=== PATIENT | female | born 1945 | race Two or more races ===

== ENCOUNTER 2017-12-06 17:11 | Inpatient (IN) | payer OTHER ==
[2017-12-06] MEDS ORDERED: ONDANSETRON 4 MG INJ IV (18:00)
[2017-12-06] MEDS ORDERED: LORAZEPAM 0.5 MG TAB PO (18:00)
[2017-12-06] MEDS ORDERED: morphine 2 MG INJ IV (18:00)
[2017-12-06] MEDS ORDERED: NACL 0.9% 3 ML SYG IV (18:00)
[2017-12-06] MEDS ORDERED: DEXTROSE 50% 50 ML SYRINGE IV ×2 (18:30)
[2017-12-06] MEDS ORDERED: GLUCOSE GEL 15 GRAM TUBE BUCCAL (18:30)
[2017-12-06] MEDS ORDERED: GLUCOSE GEL 15 GRAM TUBE PO ×2 (18:30)
[2017-12-06] MEDS ORDERED: GLUCAGON 1 MG INJ IM (18:30)
[2017-12-06] MEDS: SOD CHLORIDE 0.9% 1,000 ML IV (18:35)
[2017-12-06 19:18] LABS: ADD MAN DIFF? NO
[2017-12-06 19:20] LABS: ABNORMAL IP MESSAGE 1; NUCLEATED RED BLOOD CELLS% 0.7 /100WBC (0.0-0.0)
[2017-12-06 19:26] LABS: HEMATOCRIT 22.8 % (37.0-47.0); MEAN CORPUSCULAR HEMOGLOBIN 22.6 pg (29.0-33.0); MEAN CORPUSCULAR HGB CONC 29.4 g/dl (32.0-37.0); MEAN CORPUSCULAR VOLUME 76.8 fl (82.0-101.0); MEAN PLATELET VOLUME 9.8 fl (7.4-10.4); PLATELET COUNT 448 10^3/UL (140-415); RED BLOOD COUNT 2.97 10^6/ul (4.20-5.40); RED CELL DISTRIBUTION WIDTH 17.6 % (11.5-14.5)
[2017-12-06 19:26] LABS: WHITE BLOOD COUNT 5.9 10^3/ul (4.8-10.8)
[2017-12-06 19:33] LABS: HEMOGLOBIN 6.7 g/dl (12.0-16.0); POSITIVE DIFF @See below
[2017-12-06 19:45] LABS: IRON 21 ug/dl (35-150)
[2017-12-06 19:49] LABS: ALANINE AMINOTRANSFERASE 27 IU/L (13-69); ALBUMIN 3.5 g/dl (3.3-4.9); ALBUMIN/GLOBULIN RATIO 1.06; ALKALINE PHOSPHATASE 86 IU/L (42-121); ANION GAP 13 (8-16); ASPARTATE AMINO TRANSFERASE 21 IU/L (15-46); BILIRUBIN,INDIRECT 0.1 mg/dl (0-1.1); BILIRUBIN,TOTAL 0.1 mg/dl (0.2-1.3); BLOOD UREA NITROGEN 12 mg/dl (7-20); CALCIUM 8.8 mg/dl (8.4-10.2); CARBON DIOXIDE 26 mmol/L (21-31); CHLORIDE 107 mmol/L (97-110); CREATININE 0.63 mg/dl (0.44-1.00); GLUCOSE 154 mg/dl (70-220); POTASSIUM 4.1 mmol/L (3.5-5.1); SODIUM 142 mmol/L (135-144); TOTAL PROTEIN 6.8 g/dl (6.1-8.1)
[2017-12-06 19:55] LABS: % IRON SATURATION 5 % SAT (22-52); TOTAL IRON BINDING CAPACITY 406 ug/dl (241-421)
[2017-12-06 20:21] LABS: FERRITIN 6.3 ng/ml (11.1-264.0)
[2017-12-06] MEDS: MONTELUKAST 10 MG TAB PO (21:08)
[2017-12-06] MEDS: ATORVASTATIN 20 MG TAB PO (21:08)
[2017-12-06] MEDS: FERROUS SULFATE (EC) 325 MG TAB PO (21:08)
[2017-12-06] MEDS: INSULIN GLARGINE [LANtus] 3 ML PEN SC (21:12)
[2017-12-06] MEDS: INSULIN ASPART [NOVOLOG] 3 ML PEN SC (21:13)
[2017-12-06 21:27] LABS: ADD UMIC YES; UR ASCORBIC ACID NEGATIVE (NEGATIVE); UR BILIRUBIN (Dip) NEGATIVE (NEGATIVE); UR BLOOD (Dip) 1+ mg/dL (NEGATIVE); UR CLARITY CLEAR (CLEAR); UR COLOR STRAW (YELLOW); UR GLUCOSE (Dip) NEGATIVE (NEGATIVE); UR KETONES (Dip) NEGATIVE (NEGATIVE); UR LEUKOCYTE ESTERASE (Dip) NEGATIVE Leu/ul (NEGATIVE); UR NITRITE (Dip) NEGATIVE (NEGATIVE); UR RBC 0 /HPF (0-5); UR SPECIFIC GRAVITY (Dip) 1.005 (1.003-1.030); UR TOTAL PROTEIN (Dip) NEGATIVE (NEGATIVE); UR UROBILINOGEN (Dip) NEGATIVE (NEGATIVE); UR WBC 1 /HPF (0-5)
[2017-12-06 22:04] LABS: ANISOCYTOSIS 2+ (0-0); HYPOCHROMASIA 2+ (0-0); LYMPHOCYTES #M 1.7 10^3/ul (0.8-2.9); LYMPHOCYTES % (M) 29 % (15-51); MICROCYTOSIS 2+ (0-0); MONOCYTE #M 0.5 10^3/ul (0.3-0.9); MONOCYTES % (M) 10 % (0-11); PLATELET ESTIMATE NORMAL; POIKILOCYTOSIS 2+ (0-0); POLYCHROMASIA 3+ (0-0); SEGMENTED NEUTROPHILS (M) % 61 % (39-77); SMUDGE%M 3 % (0-0)
[2017-12-06 22:20] LABS: OCCULT BLOOD STOOL POSITIVE (NEGATIVE)
[2017-12-06 22:33] LABS: IMMEDIATE SPIN CROSSMATCH 1 1
[2017-12-07] MEDS: ACCU-CHEK XX (02:00)
[2017-12-07] MEDS: PANTOPRAZOLE (EC) 40 MG TAB PO (06:02)
[2017-12-07 06:28] LABS: ADD MAN DIFF? NO
[2017-12-07 06:44] LABS: BASOPHILS % 0.6 % (0.0-2.0); EOSINOPHILS # 0.1 10^3/ul (0.0-0.5); EOSINOPHILS % 1.5 % (0.0-7.0); HEMATOCRIT 26.5 % (37.0-47.0); LYMPHOCYTES # 1.3 10^3/ul (0.8-2.9); LYMPHOCYTES % 27.9 % (15.0-51.0); MEAN CORPUSCULAR HEMOGLOBIN 23.7 pg (29.0-33.0); MEAN CORPUSCULAR HGB CONC 30.2 g/dl (32.0-37.0); MEAN CORPUSCULAR VOLUME 78.4 fl (82.0-101.0); MEAN PLATELET VOLUME 9.8 fl (7.4-10.4); MONOCYTE # 0.7 10^3/ul (0.3-0.9); MONOCYTES % 14.3 % (0.0-11.0); NEUTROPHIL # 2.6 10^3/ul (1.6-7.5); NEUTROPHILS % 55.3 % (39.0-77.0); NUCLEATED RED BLOOD CELLS # 0.1 10^3/ul (0.0-0.0); NUCLEATED RED BLOOD CELLS% 1.5 /100WBC (0.0-0.0); PLATELET COUNT 365 10^3/UL (140-415); RED BLOOD COUNT 3.38 10^6/ul (4.20-5.40); RED CELL DISTRIBUTION WIDTH 17.1 % (11.5-14.5)
[2017-12-07 06:44] LABS: WHITE BLOOD COUNT 4.8 10^3/ul (4.8-10.8)
[2017-12-07 07:07] LABS: HEMOGLOBIN A1C 7.7 % (0-5.9)
[2017-12-07 07:20] LABS: ALANINE AMINOTRANSFERASE 23 IU/L (13-69); ALBUMIN 2.8 g/dl (3.3-4.9); ALBUMIN/GLOBULIN RATIO 0.96; ALKALINE PHOSPHATASE 82 IU/L (42-121); ANION GAP 9 (8-16); ASPARTATE AMINO TRANSFERASE 23 IU/L (15-46); BILIRUBIN,INDIRECT 0.1 mg/dl (0-1.1); BILIRUBIN,TOTAL 0.1 mg/dl (0.2-1.3); BLOOD UREA NITROGEN 12 mg/dl (7-20); CALCIUM 8.4 mg/dl (8.4-10.2); CARBON DIOXIDE 29 mmol/L (21-31); CHLORIDE 108 mmol/L (97-110); CHOL/HDL RATIO 4.2 RATIO; CHOLESTEROL 124 mg/dl (100-200); CREATININE 0.58 mg/dl (0.44-1.00); GLUCOSE 215 mg/dl (70-220); HDL CHOLESTEROL 29 mg/dl (33-92); LDL CHOLESTEROL,CALCULATED 65 mg/dl; POTASSIUM 4.4 mmol/L (3.5-5.1); SODIUM 142 mmol/L (135-144); TOTAL PROTEIN 5.7 g/dl (6.1-8.1); TRIGLYCERIDES 148 mg/dl (0-149)
[2017-12-07] MEDS: INSULIN ASPART [NOVOLOG] 3 ML PEN SC ×7 (08:09→20:42)
[2017-12-07] MEDS: METOPROLOL (XL) 50 MG TAB PO (08:13)
[2017-12-07] MEDS: BENAZEPRIL 40 MG TAB PO (08:14)
[2017-12-07] MEDS: HYDROCHLOROTHIAZIDE 25 MG TAB PO (08:15)
[2017-12-07] MEDS: FERROUS SULFATE (EC) 325 MG TAB PO ×2 (08:15→20:42)
[2017-12-07] MEDS: SOD CHLORIDE 0.45% 1,000 ML IV (11:26)
[2017-12-07 13:51] LABS: FOLATE > 20.0 ng/ml (2.8-20.0)
[2017-12-07] MEDS: ACETAMINOPHEN 325 MG TAB PO (15:14)
[2017-12-07] MEDS: AMLODIPINE 5 MG TAB PO (15:15)
[2017-12-07] MEDS: LINAGLIPTIN 5 MG TABLET PO (16:15)
[2017-12-07] MEDS: metFORMIN 500 MG TAB PO (17:29)
[2017-12-07] MEDS: BISACODYL (EC) 5 MG TAB PO (17:29)
[2017-12-07] MEDS: PANTOPRAZOLE 40 MG INJ IV (17:31)
[2017-12-07] MEDS: MAGNESIUM CITRATE 300 ML BTL PO ×2 (18:05→18:47)
[2017-12-07] MEDS: POLYETHYLENE GLYCOL 3350 119 GM POWDER PO (18:47)
[2017-12-07] MEDS: INSULIN GLARGINE [LANtus] 3 ML PEN SC (20:41)
[2017-12-07] MEDS: ATORVASTATIN 20 MG TAB PO (20:42)
[2017-12-07] MEDS: MONTELUKAST 10 MG TAB PO (20:42)
[2017-12-08] MEDS: ACCU-CHEK XX (02:00)
[2017-12-08] MEDS: POLYETHYLENE GLYCOL 3350 119 GM POWDER PO (05:24)
[2017-12-08] MEDS: PANTOPRAZOLE 40 MG INJ IV ×2 (05:25→18:40)
[2017-12-08] MEDS: SOD CHLORIDE 0.45% 1,000 ML IV ×2 (07:00→15:49)
[2017-12-08 07:27] LABS: ADD MAN DIFF? NO
[2017-12-08 07:33] LABS: BASOPHILS % 0.7 % (0.0-2.0); EOSINOPHILS # 0.1 10^3/ul (0.0-0.5); EOSINOPHILS % 1.6 % (0.0-7.0); HEMOGLOBIN 9.4 g/dl (12.0-16.0); LYMPHOCYTES # 1.8 10^3/ul (0.8-2.9); LYMPHOCYTES % 31.4 % (15.0-51.0); MEAN CORPUSCULAR HEMOGLOBIN 23.7 pg (29.0-33.0); MEAN CORPUSCULAR HGB CONC 30.3 g/dl (32.0-37.0); MEAN CORPUSCULAR VOLUME 78.3 fl (82.0-101.0); MEAN PLATELET VOLUME 9.8 fl (7.4-10.4); MONOCYTE # 0.8 10^3/ul (0.3-0.9); MONOCYTES % 14.6 % (0.0-11.0); NEUTROPHIL # 2.9 10^3/ul (1.6-7.5); NEUTROPHILS % 51.2 % (39.0-77.0); NUCLEATED RED BLOOD CELLS # 0.1 10^3/ul (0.0-0.0); NUCLEATED RED BLOOD CELLS% 0.9 /100WBC (0.0-0.0); PLATELET COUNT 417 10^3/UL (140-415); RED BLOOD COUNT 3.96 10^6/ul (4.20-5.40); RED CELL DISTRIBUTION WIDTH 17.5 % (11.5-14.5)
[2017-12-08 07:33] LABS: WHITE BLOOD COUNT 5.6 10^3/ul (4.8-10.8)
[2017-12-08] MEDS: metFORMIN 500 MG TAB PO ×2 (08:05→19:07)
[2017-12-08 08:07] LABS: ANION GAP 16 (8-16); BLOOD UREA NITROGEN 10 mg/dl (7-20); CARBON DIOXIDE 28 mmol/L (21-31); CHLORIDE 102 mmol/L (97-110); CREATININE 0.66 mg/dl (0.44-1.00); GLUCOSE 224 mg/dl (70-220); MAGNESIUM 2.2 mg/dl (1.7-2.5); PHOSPHORUS 2.4 mg/dl (2.5-4.9); POTASSIUM 3.6 mmol/L (3.5-5.1); SODIUM 142 mmol/L (135-144)
[2017-12-08] MEDS: INSULIN ASPART [NOVOLOG] 3 ML PEN SC ×7 (08:08→22:41)
[2017-12-08] MEDS: BISACODYL (EC) 5 MG TAB PO (08:23)
[2017-12-08] MEDS: AMLODIPINE 5 MG TAB PO (09:00)
[2017-12-08] MEDS: BENAZEPRIL 40 MG TAB PO (09:00)
[2017-12-08] MEDS: METOPROLOL (XL) 50 MG TAB PO (09:00)
[2017-12-08] MEDS: FERROUS SULFATE (EC) 325 MG TAB PO ×2 (09:00→20:55)
[2017-12-08] MEDS: LINAGLIPTIN 5 MG TABLET PO (09:00)
[2017-12-08] MEDS ORDERED: hydrALAzine 20 MG INJ IV (09:30)
[2017-12-08] MEDS: HYDROCORTISONE 2.5% 28.35 GM OINT TOP ×2 (12:15→20:56)
[2017-12-08] MEDS: MIDAZOLAM 1 MG/ML 2 ML INJ (16:56)
[2017-12-08] MEDS: PROPOFOL 20 ML (16:56)
[2017-12-08] MEDS: LIDOCAINE 2% (SDV) 5 ML INJ (16:56)
[2017-12-08] MEDS: PHENYLephrine (100 MCG/ML) 5ML SYG (16:57)
[2017-12-08] MEDS: LABETALOL HCL 20MG INJ (17:05)
[2017-12-08] MEDS: ATORVASTATIN 20 MG TAB PO (20:55)
[2017-12-08] MEDS: MONTELUKAST 10 MG TAB PO (20:56)
[2017-12-09] MEDS: ACCU-CHEK XX (02:00)
[2017-12-09] MEDS: PANTOPRAZOLE 40 MG INJ IV ×2 (06:03→18:46)
[2017-12-09 06:19] LABS: ADD MAN DIFF? NO
[2017-12-09 06:35] LABS: BASOPHILS % 0.6 % (0.0-2.0); EOSINOPHILS # 0.1 10^3/ul (0.0-0.5); EOSINOPHILS % 0.9 % (0.0-7.0); HEMATOCRIT 25.6 % (37.0-47.0); HEMOGLOBIN 7.8 g/dl (12.0-16.0); LYMPHOCYTES # 1.8 10^3/ul (0.8-2.9); LYMPHOCYTES % 26.9 % (15.0-51.0); MEAN CORPUSCULAR HEMOGLOBIN 23.9 pg (29.0-33.0); MEAN CORPUSCULAR HGB CONC 30.5 g/dl (32.0-37.0); MEAN CORPUSCULAR VOLUME 78.3 fl (82.0-101.0); MEAN PLATELET VOLUME 9.8 fl (7.4-10.4); MONOCYTE # 0.8 10^3/ul (0.3-0.9); MONOCYTES % 11.7 % (0.0-11.0); NEUTROPHIL # 4.1 10^3/ul (1.6-7.5); NEUTROPHILS % 59.5 % (39.0-77.0); NUCLEATED RED BLOOD CELLS% 0.4 /100WBC (0.0-0.0); PLATELET COUNT 345 10^3/UL (140-415); RED BLOOD COUNT 3.27 10^6/ul (4.20-5.40); RED CELL DISTRIBUTION WIDTH 17.9 % (11.5-14.5)
[2017-12-09 06:35] LABS: WHITE BLOOD COUNT 6.8 10^3/ul (4.8-10.8)
[2017-12-09 06:58] LABS: ANION GAP 11 (8-16); BLOOD UREA NITROGEN 9 mg/dl (7-20); CALCIUM 8.5 mg/dl (8.4-10.2); CARBON DIOXIDE 27 mmol/L (21-31); CHLORIDE 107 mmol/L (97-110); GLUCOSE 168 mg/dl (70-220); MAGNESIUM 1.7 mg/dl (1.7-2.5); PHOSPHORUS 3.3 mg/dl (2.5-4.9); POTASSIUM 3.6 mmol/L (3.5-5.1); SODIUM 141 mmol/L (135-144)
[2017-12-09] MEDS: INSULIN ASPART [NOVOLOG] 3 ML PEN SC ×4 (08:17→20:40)
[2017-12-09] MEDS: LINAGLIPTIN 5 MG TABLET PO (08:18)
[2017-12-09] MEDS: metFORMIN 500 MG TAB PO ×2 (08:18→17:21)
[2017-12-09] MEDS: METOPROLOL (XL) 50 MG TAB PO (08:19)
[2017-12-09] MEDS: FERROUS SULFATE (EC) 325 MG TAB PO ×2 (08:20→20:36)
[2017-12-09] MEDS: AMLODIPINE 5 MG TAB PO (08:20)
[2017-12-09] MEDS: BENAZEPRIL 40 MG TAB PO (08:21)
[2017-12-09] MEDS: HYDROCORTISONE 2.5% 28.35 GM OINT TOP ×2 (08:21→20:41)
[2017-12-09] MEDS: SOD CHLORIDE 0.45% 1,000 ML IV ×2 (16:00→23:00)
[2017-12-09] MEDS: HYDROCODONE/APAP (5/325) TAB PO (17:06)
[2017-12-09] MEDS: ATORVASTATIN 20 MG TAB PO (20:36)
[2017-12-09] MEDS: MONTELUKAST 10 MG TAB PO (20:40)
[2017-12-10] MEDS: ACCU-CHEK XX (02:00)
[2017-12-10] MEDS: PANTOPRAZOLE 40 MG INJ IV ×2 (05:37→17:36)
[2017-12-10 06:25] LABS: ADD MAN DIFF? NO
[2017-12-10 06:36] LABS: BASOPHILS % 0.6 % (0.0-2.0); EOSINOPHILS # 0.1 10^3/ul (0.0-0.5); HEMATOCRIT 28.4 % (37.0-47.0); HEMOGLOBIN 8.4 g/dl (12.0-16.0); LYMPHOCYTES # 1.5 10^3/ul (0.8-2.9); LYMPHOCYTES % 23.2 % (15.0-51.0); MEAN CORPUSCULAR HEMOGLOBIN 23.5 pg (29.0-33.0); MEAN CORPUSCULAR HGB CONC 29.6 g/dl (32.0-37.0); MEAN CORPUSCULAR VOLUME 79.6 fl (82.0-101.0); MEAN PLATELET VOLUME 9.9 fl (7.4-10.4); MONOCYTE # 0.9 10^3/ul (0.3-0.9); NEUTROPHIL # 3.8 10^3/ul (1.6-7.5); NEUTROPHILS % 60.6 % (39.0-77.0); NUCLEATED RED BLOOD CELLS% 0.5 /100WBC (0.0-0.0); PLATELET COUNT 349 10^3/UL (140-415); RED BLOOD COUNT 3.57 10^6/ul (4.20-5.40); RED CELL DISTRIBUTION WIDTH 18.7 % (11.5-14.5)
[2017-12-10 06:36] LABS: WHITE BLOOD COUNT 6.3 10^3/ul (4.8-10.8)
[2017-12-10 06:38] LABS: RETICULOCYTE COUNT # 0.153 X10^6 (0.020-0.110); RETICULOCYTE COUNT % 4.5 % (0.5-1.5)
[2017-12-10 06:38] LABS: RETICULOCYTE RBC 3.43
[2017-12-10 06:55] LABS: LACTATE DEHYDROGENASE 517 IU/L (313-618)
[2017-12-10 06:56] LABS: ANION GAP 10 (8-16); BLOOD UREA NITROGEN 10 mg/dl (7-20); CARBON DIOXIDE 30 mmol/L (21-31); CHLORIDE 104 mmol/L (97-110); CREATININE 0.64 mg/dl (0.44-1.00); GLUCOSE 184 mg/dl (70-220); MAGNESIUM 1.5 mg/dl (1.7-2.5); PHOSPHORUS 3.3 mg/dl (2.5-4.9); POTASSIUM 3.9 mmol/L (3.5-5.1); SODIUM 140 mmol/L (135-144)
[2017-12-10] MEDS: metFORMIN 500 MG TAB PO ×2 (08:05→17:36)
[2017-12-10] MEDS: INSULIN ASPART [NOVOLOG] 3 ML PEN SC ×4 (08:15→21:05)
[2017-12-10] MEDS: BENAZEPRIL 40 MG TAB PO (08:52)
[2017-12-10] MEDS: AMLODIPINE 5 MG TAB PO (08:52)
[2017-12-10] MEDS: FERROUS SULFATE (EC) 325 MG TAB PO ×2 (08:52→21:01)
[2017-12-10] MEDS: METOPROLOL (XL) 50 MG TAB PO (08:53)
[2017-12-10] MEDS: LINAGLIPTIN 5 MG TABLET PO (08:53)
[2017-12-10] MEDS: HYDROCORTISONE 2.5% 28.35 GM OINT TOP ×2 (09:19→21:02)
[2017-12-10] MEDS: SOD CHLORIDE 0.45% 1,000 ML IV (12:00)
[2017-12-10] MEDS: DIATR MEGLU/DIATRIZOATE SODIUM 120 ML BTL (12:12)
[2017-12-10] MEDS: MAGNESIUM OXIDE 400 MG TAB PO (14:37)
[2017-12-10] MEDS: SOD CHLORIDE 0.9% 250 ML IV* (18:00)
[2017-12-10 18:16] LABS: IMMEDIATE SPIN CROSSMATCH 1 1
[2017-12-10] MEDS: MONTELUKAST 10 MG TAB PO (21:00)
[2017-12-10] MEDS: ATORVASTATIN 20 MG TAB PO (21:01)
[2017-12-11] MEDS: ACCU-CHEK XX (02:00)
[2017-12-11 05:43] LABS: ADD MAN DIFF? NO
[2017-12-11 05:49] LABS: BASOPHILS % 0.5 % (0.0-2.0); EOSINOPHILS # 0.1 10^3/ul (0.0-0.5); EOSINOPHILS % 0.8 % (0.0-7.0); HEMATOCRIT 32.7 % (37.0-47.0); HEMOGLOBIN 10.3 g/dl (12.0-16.0); LYMPHOCYTES # 2.1 10^3/ul (0.8-2.9); LYMPHOCYTES % 25.2 % (15.0-51.0); MEAN CORPUSCULAR HEMOGLOBIN 25.3 pg (29.0-33.0); MEAN CORPUSCULAR HGB CONC 31.5 g/dl (32.0-37.0); MEAN CORPUSCULAR VOLUME 80.3 fl (82.0-101.0); MEAN PLATELET VOLUME 9.4 fl (7.4-10.4); MONOCYTES % 11.9 % (0.0-11.0); NEUTROPHIL # 5.1 10^3/ul (1.6-7.5); NUCLEATED RED BLOOD CELLS% 0.2 /100WBC (0.0-0.0); PLATELET COUNT 341 10^3/UL (140-415); RED BLOOD COUNT 4.07 10^6/ul (4.20-5.40)
[2017-12-11 05:49] LABS: WHITE BLOOD COUNT 8.3 10^3/ul (4.8-10.8)
[2017-12-11] MEDS: PANTOPRAZOLE 40 MG INJ IV (06:02)
[2017-12-11 06:28] LABS: ANION GAP 12 (8-16); BLOOD UREA NITROGEN 16 mg/dl (7-20); CALCIUM 9.1 mg/dl (8.4-10.2); CARBON DIOXIDE 28 mmol/L (21-31); CHLORIDE 106 mmol/L (97-110); GLUCOSE 146 mg/dl (70-220); MAGNESIUM 1.8 mg/dl (1.7-2.5); POTASSIUM 3.5 mmol/L (3.5-5.1); SODIUM 142 mmol/L (135-144)
[2017-12-11] MEDS: INSULIN ASPART [NOVOLOG] 3 ML PEN SC ×2 (08:15→12:15)
[2017-12-11] MEDS: metFORMIN 500 MG TAB PO (09:32)
[2017-12-11] MEDS: FERROUS SULFATE (EC) 325 MG TAB PO (09:32)
[2017-12-11] MEDS: METOPROLOL (XL) 50 MG TAB PO (09:33)
[2017-12-11] MEDS: HYDROCORTISONE 2.5% 28.35 GM OINT TOP (09:33)
[2017-12-11] MEDS: LINAGLIPTIN 5 MG TABLET PO (09:33)
[2017-12-11] MEDS: AMLODIPINE 5 MG TAB PO (09:33)
[2017-12-11] MEDS: BENAZEPRIL 40 MG TAB PO (09:33)
[2017-12-12 11:11] LABS: HAPTOGLOBIN 219 mg/dL (43-212)
== END 2017-12-11 13:40 | disposition home or self-care (01) | DRG 392 ==
LOC: MS2 17:11
PROC: 30233N1 Transfusion of Nonautologous Red Blood Cells into Peripheral Vein, Percutaneous Approach (ICD-10-PCS; principal; 2017-12-08 16:32)
PROC: 0DB98ZX Excision of Duodenum, Via Natural or Artificial Opening Endoscopic, Diagnostic (ICD-10-PCS; 2017-12-08 16:32)
PROC: 0DB68ZX Excision of Stomach, Via Natural or Artificial Opening Endoscopic, Diagnostic (ICD-10-PCS; 2017-12-08 16:32)
PROC: 0DJD8ZZ Inspection of Lower Intestinal Tract, Via Natural or Artificial Opening Endoscopic (ICD-10-PCS; 2017-12-08 16:32)
PROC: 30233N1 Transfusion of Nonautologous Red Blood Cells into Peripheral Vein, Percutaneous Approach (ICD-10-PCS; 2017-12-08 16:32)
DX: K90.9 Intestinal malabsorption, unspecified (principal); E11.65 Type 2 diabetes mellitus with hyperglycemia; D50.9 Iron deficiency anemia, unspecified; I10 Essential (primary) hypertension; R19.5 Other fecal abnormalities; K29.70 Gastritis, unspecified, without bleeding; M81.0 Age-related osteoporosis without current pathological fracture; Z79.4 Long term (current) use of insulin; Z87.11 Personal history of peptic ulcer disease
CPT/HCPCS: 36430; 74250; 80048; 80053; 80061; 81001; 82270; 82607; 82728; 82746; 82962; 83010; 83036; 83540; 83615; 83735; 84100; 85025; 85045; 86850; 86900; 86901; 86920; 88305; 88312; 93306; 97161; 97167

== ENCOUNTER 2017-12-22 11:22 | Inpatient (IN) | payer OTHER ==
[2017-12-22] MEDS: SOD CHLORIDE 0.9% 250 ML IV (14:01)
[2017-12-22 14:37] LABS: ADD MAN DIFF? NO
[2017-12-22 14:41] LABS: WHITE BLOOD COUNT 7.5 10^3/ul (4.8-10.8)
[2017-12-22 14:41] LABS: BASOPHILS % 0.4 % (0.0-2.0); HEMATOCRIT 26.3 % (37.0-47.0); HEMOGLOBIN 8.1 g/dl (12.0-16.0); LYMPHOCYTES # 1.2 10^3/ul (0.8-2.9); LYMPHOCYTES % 15.4 % (15.0-51.0); MEAN CORPUSCULAR HEMOGLOBIN 25.4 pg (29.0-33.0); MEAN CORPUSCULAR HGB CONC 30.8 g/dl (32.0-37.0); MEAN CORPUSCULAR VOLUME 82.4 fl (82.0-101.0); MEAN PLATELET VOLUME 9.8 fl (7.4-10.4); MONOCYTE # 0.6 10^3/ul (0.3-0.9); MONOCYTES % 7.3 % (0.0-11.0); NEUTROPHIL # 5.7 10^3/ul (1.6-7.5); NEUTROPHILS % 76.5 % (39.0-77.0); PLATELET COUNT 738 10^3/UL (140-415); RED BLOOD COUNT 3.19 10^6/ul (4.20-5.40); RED CELL DISTRIBUTION WIDTH 19.5 % (11.5-14.5)
[2017-12-22] MEDS: PANTOPRAZOLE IV 80 MG in SOD CHLORIDE 0.9% 100 ML IVPB (14:44)
[2017-12-22 14:56] LABS: INR 1.07; PT RATIO 1.1
[2017-12-22 14:57] LABS: PARTIAL THROMBOPLASTIN TIME 23.1 Sec (25.0-35.0)
[2017-12-22 14:59] LABS: ALANINE AMINOTRANSFERASE 22 IU/L (13-69); ALBUMIN 3.6 g/dl (3.3-4.9); ALBUMIN/GLOBULIN RATIO 1.16; ALKALINE PHOSPHATASE 76 IU/L (42-121); ANION GAP 21 (8-16); ASPARTATE AMINO TRANSFERASE 21 IU/L (15-46); BILIRUBIN,INDIRECT 0.3 mg/dl (0-1.1); BILIRUBIN,TOTAL 0.3 mg/dl (0.2-1.3); BLOOD UREA NITROGEN 27 mg/dl (7-20); CALCIUM 9.2 mg/dl (8.4-10.2); CARBON DIOXIDE 22 mmol/L (21-31); CHLORIDE 105 mmol/L (97-110); CREATININE 0.84 mg/dl (0.44-1.00); GLUCOSE 290 mg/dl (70-220); POTASSIUM 4.8 mmol/L (3.5-5.1); SODIUM 143 mmol/L (135-144); TOTAL PROTEIN 6.7 g/dl (6.1-8.1)
[2017-12-22 15:15] LABS: TROPONIN-I < 0.012 ng/ml (0.00-0.12)
[2017-12-22] MEDS ORDERED: ONDANSETRON 4 MG INJ IV ×2 (16:00→16:30)
[2017-12-22] MEDS ORDERED: ACETAMINOPHEN 325 MG TAB PO (16:00)
[2017-12-22 16:01] LABS: IMMEDIATE SPIN CROSSMATCH 1 2
[2017-12-22] MEDS: PANTOPRAZOLE IV 80 MG in SOD CHLORIDE 0.9% 100 ML IV (16:30)
[2017-12-22] MEDS ORDERED: DOCUSATE SODIUM 100 MG CAP PO (16:30)
[2017-12-22] MEDS ORDERED: morphine 2 MG INJ IV (16:30)
[2017-12-22] MEDS ORDERED: BISACODYL (EC) 5 MG TAB PO (16:30)
[2017-12-22] MEDS ORDERED: GLUCAGON 1 MG INJ IM (16:30)
[2017-12-22] MEDS ORDERED: MAGNESIUM HYDROXIDE 30ML CUP PO (16:30)
[2017-12-22] MEDS ORDERED: NACL 0.9% 3 ML SYG IV ×2 (16:30)
[2017-12-22] MEDS ORDERED: GLUCOSE GEL 15 GRAM TUBE PO ×2 (16:30)
[2017-12-22] MEDS ORDERED: GLUCOSE GEL 15 GRAM TUBE BUCCAL (16:30)
[2017-12-22] MEDS ORDERED: DEXTROSE 50% 50 ML SYRINGE IV ×2 (16:30)
[2017-12-22] MEDS ORDERED: hydrALAzine 20 MG INJ IV (16:30)
[2017-12-22] MEDS: SOD CHLORIDE 0.9% 1,000 ML IV (16:46)
[2017-12-22] MEDS: HYDROCODONE/APAP (5/325) TAB PO (16:49)
[2017-12-22] MEDS: SOD CHLORIDE 0.9% 100 ML (17:30)
[2017-12-22] MEDS: IOHEXOL 300MG/ML 30 ML BTL (17:30)
[2017-12-22] MEDS: INSULIN ASPART [NOVOLOG] 3 ML PEN SC ×2 (18:00→21:00)
[2017-12-22] MEDS: ATORVASTATIN 20 MG TAB PO (20:54)
[2017-12-22] MEDS: DEXTROSE 5%-0.45% NACL 1,000 ML IV (20:54)
[2017-12-22] MEDS: INSULIN GLARGINE [LANtus] 3 ML PEN SC (21:29)
[2017-12-23] MEDS ORDERED: ACCU-CHEK XX (02:00)
[2017-12-23] MEDS: PANTOPRAZOLE IV 80 MG in SOD CHLORIDE 0.9% 100 ML IV ×2 (03:15→11:27)
[2017-12-23 06:13] LABS: ADD MAN DIFF? NO
[2017-12-23 06:19] LABS: BASOPHIL # 0.1 10^3/ul (0.0-0.1); BASOPHILS % 0.9 % (0.0-2.0); EOSINOPHILS # 0.1 10^3/ul (0.0-0.5); EOSINOPHILS % 0.7 % (0.0-7.0); HEMATOCRIT 30.7 % (37.0-47.0); LYMPHOCYTES % 27.9 % (15.0-51.0); MEAN CORPUSCULAR HEMOGLOBIN 26.5 pg (29.0-33.0); MEAN CORPUSCULAR HGB CONC 32.6 g/dl (32.0-37.0); MEAN CORPUSCULAR VOLUME 81.4 fl (82.0-101.0); MONOCYTE # 1.1 10^3/ul (0.3-0.9); MONOCYTES % 14.9 % (0.0-11.0); NEUTROPHIL # 3.9 10^3/ul (1.6-7.5); NUCLEATED RED BLOOD CELLS% 0.3 /100WBC (0.0-0.0); PLATELET COUNT 517 10^3/UL (140-415); RED BLOOD COUNT 3.77 10^6/ul (4.20-5.40); RED CELL DISTRIBUTION WIDTH 16.9 % (11.5-14.5)
[2017-12-23] MEDS: INSULIN ASPART [NOVOLOG] 3 ML PEN SC ×2 (06:20→08:25)
[2017-12-23 06:49] LABS: ALANINE AMINOTRANSFERASE 27 IU/L (13-69); ALBUMIN 2.8 g/dl (3.3-4.9); ALKALINE PHOSPHATASE 61 IU/L (42-121); ANION GAP 13 (8-16); ASPARTATE AMINO TRANSFERASE 28 IU/L (15-46); BILIRUBIN,INDIRECT 0.7 mg/dl (0-1.1); BILIRUBIN,TOTAL 0.7 mg/dl (0.2-1.3); BLOOD UREA NITROGEN 20 mg/dl (7-20); CALCIUM 8.3 mg/dl (8.4-10.2); CARBON DIOXIDE 24 mmol/L (21-31); CHLORIDE 110 mmol/L (97-110); CREATININE 0.64 mg/dl (0.44-1.00); GLUCOSE 202 mg/dl (70-220); MAGNESIUM 1.9 mg/dl (1.7-2.5); POTASSIUM 3.5 mmol/L (3.5-5.1); SODIUM 143 mmol/L (135-144); TOTAL PROTEIN 5.6 g/dl (6.1-8.1)
[2017-12-23] MEDS: AMLODIPINE 5 MG TAB PO (08:23)
[2017-12-23] MEDS: METOPROLOL (XL) 50 MG TAB PO (08:23)
[2017-12-23] MEDS: DEXTROSE 5%-0.45% NACL 1,000 ML IV ×2 (09:50→14:26)
[2017-12-23] MEDS ORDERED: INSULIN ASPART [NOVOLOG] 3 ML PEN SC (11:30)
[2017-12-23] MEDS: Insulin NOVOLOG SS MILD Algorithm (SS with meals and bedtime) SC ×3 (11:53→20:12)
[2017-12-23] MEDS: LACTULOSE 30ML CUP PO ×3 (13:08→20:11)
[2017-12-23 17:04] LABS: URIC ACID 5.9 mg/dl (3.1-7.9)
[2017-12-23 17:04] LABS: LACTATE DEHYDROGENASE 520 IU/L (313-618)
[2017-12-23 17:12] LABS: IRON 43 ug/dl (35-150)
[2017-12-23 17:21] LABS: % IRON SATURATION 11 % SAT (22-52); TOTAL IRON BINDING CAPACITY 402 ug/dl (241-421)
[2017-12-23 17:59] LABS: HEMATOCRIT 35.7 % (37.0-47.0); HEMOGLOBIN 11.7 g/dl (12.0-16.0)
[2017-12-23 18:05] LABS: FERRITIN 12.8 ng/ml (11.1-264.0)
[2017-12-23 18:12] LABS: CANCER ANTIGEN 19-9 4.1 U/ml (0.0-37.0)
[2017-12-23] MEDS: ATORVASTATIN 20 MG TAB PO (20:11)
[2017-12-23] MEDS: INSULIN GLARGINE [LANtus] 3 ML PEN SC (20:12)
[2017-12-24 00:51] LABS: HEMATOCRIT 30.7 % (37.0-47.0); HEMOGLOBIN 9.8 g/dl (12.0-16.0)
[2017-12-24] MEDS: ACCUCHECK AT 2AM (Patients on SS coverage) XX (03:29)
[2017-12-24 05:17] LABS: ADD MAN DIFF? NO
[2017-12-24 05:29] LABS: BASOPHIL # 0.1 10^3/ul (0.0-0.1); BASOPHILS % 0.9 % (0.0-2.0); EOSINOPHILS # 0.1 10^3/ul (0.0-0.5); EOSINOPHILS % 1.4 % (0.0-7.0); HEMATOCRIT 31.1 % (37.0-47.0); HEMOGLOBIN 9.8 g/dl (12.0-16.0); LYMPHOCYTES # 1.9 10^3/ul (0.8-2.9); LYMPHOCYTES % 28.4 % (15.0-51.0); MEAN CORPUSCULAR HGB CONC 31.5 g/dl (32.0-37.0); MEAN CORPUSCULAR VOLUME 82.5 fl (82.0-101.0); MEAN PLATELET VOLUME 9.9 fl (7.4-10.4); MONOCYTES % 15.5 % (0.0-11.0); NEUTROPHIL # 3.5 10^3/ul (1.6-7.5); NEUTROPHILS % 53.5 % (39.0-77.0); NUCLEATED RED BLOOD CELLS% 0.3 /100WBC (0.0-0.0); PLATELET COUNT 544 10^3/UL (140-415); RED BLOOD COUNT 3.77 10^6/ul (4.20-5.40)
[2017-12-24 05:29] LABS: WHITE BLOOD COUNT 6.6 10^3/ul (4.8-10.8)
[2017-12-24] MEDS: PANTOPRAZOLE 40 MG INJ IV (05:35)
[2017-12-24 06:08] LABS: ANION GAP 15 (8-16); BLOOD UREA NITROGEN 10 mg/dl (7-20); CALCIUM 7.8 mg/dl (8.4-10.2); CARBON DIOXIDE 22 mmol/L (21-31); CHLORIDE 110 mmol/L (97-110); CREATININE 0.54 mg/dl (0.44-1.00); GLUCOSE 166 mg/dl (70-220); MAGNESIUM 1.8 mg/dl (1.7-2.5); PHOSPHORUS 3.5 mg/dl (2.5-4.9); SODIUM 144 mmol/L (135-144)
[2017-12-24 06:16] LABS: POTASSIUM 2.8 mmol/L (3.5-5.1)
[2017-12-24 06:34] LABS: CARCINOEMBRYONIC ANTIGEN 1.6 ng/ml (0.0-5.0)
[2017-12-24] MEDS: POTASSIUM CHLORIDE (SR) 20 MEQ TAB PO ×3 (07:40→10:58)
[2017-12-24] MEDS: METOPROLOL (XL) 50 MG TAB PO (07:40)
[2017-12-24] MEDS: AMLODIPINE 5 MG TAB PO (07:40)
[2017-12-24] MEDS: Insulin NOVOLOG SS MILD Algorithm (SS with meals and bedtime) SC ×2 (07:47→12:10)
[2017-12-24] MEDS: BISACODYL (EC) 5 MG TAB PO (08:34)
[2017-12-24] MEDS: ACETAMINOPHEN 325 MG TAB PO (08:35)
[2017-12-24] MEDS: DEXTROSE 5%-0.45% NACL 1,000 ML IV ×2 (08:36→23:22)
[2017-12-24] MEDS: POTASSIUM CHLORIDE 100 ML IVPB (10:30)
[2017-12-24 13:17] LABS: HEMATOCRIT 32.1 % (37.0-47.0); HEMOGLOBIN 10.2 g/dl (12.0-16.0)
[2017-12-24] MEDS: SOD CHLORIDE 0.9% 100 ML (15:35)
[2017-12-24] MEDS: IODIXANOL LOCM 100 ML BTL (15:35)
[2017-12-24] MEDS: MAGNESIUM CITRATE 300 ML BTL PO (16:07)
[2017-12-24] MEDS ORDERED: INSULIN ASPART [NOVOLOG] 3 ML PEN SC (17:00)
[2017-12-24] MEDS: Insulin NOVOLOG SS MILD Algorithm (NPO/TPN/ENTERAL FEEDS) SC ×2 (17:10→20:54)
[2017-12-24] MEDS ORDERED: POLYETHYLENE GLYCOL 17 GM PACKET (17:32)
[2017-12-24] MEDS: POLYETHYLENE GLYCOL 3350 119 GM POWDER PO (17:38)
[2017-12-24 18:40] LABS: HEMATOCRIT 34.5 % (37.0-47.0); HEMOGLOBIN 10.8 g/dl (12.0-16.0)
[2017-12-24] MEDS: ATORVASTATIN 20 MG TAB PO (20:52)
[2017-12-24] MEDS: INSULIN GLARGINE [LANtus] 3 ML PEN SC (20:53)
[2017-12-25] MEDS: Insulin NOVOLOG SS MILD Algorithm (NPO/TPN/ENTERAL FEEDS) SC ×6 (00:37→21:00)
[2017-12-25 00:53] LABS: HEMATOCRIT 29.8 % (37.0-47.0); HEMOGLOBIN 9.6 g/dl (12.0-16.0)
[2017-12-25] MEDS: ACCUCHECK AT 2AM (Patients on SS coverage) XX (02:00)
[2017-12-25] MEDS: POLYETHYLENE GLYCOL 3350 119 GM POWDER PO (05:31)
[2017-12-25] MEDS: PANTOPRAZOLE 40 MG INJ IV (05:31)
[2017-12-25 05:35] LABS: ADD MAN DIFF? NO
[2017-12-25 05:46] LABS: BASOPHILS % 0.7 % (0.0-2.0); EOSINOPHILS # 0.1 10^3/ul (0.0-0.5); EOSINOPHILS % 2.1 % (0.0-7.0); HEMATOCRIT 31.7 % (37.0-47.0); HEMOGLOBIN 9.9 g/dl (12.0-16.0); LYMPHOCYTES # 1.5 10^3/ul (0.8-2.9); LYMPHOCYTES % 24.7 % (15.0-51.0); MEAN CORPUSCULAR HEMOGLOBIN 26.4 pg (29.0-33.0); MEAN CORPUSCULAR HGB CONC 31.2 g/dl (32.0-37.0); MEAN CORPUSCULAR VOLUME 84.5 fl (82.0-101.0); MEAN PLATELET VOLUME 9.8 fl (7.4-10.4); MONOCYTE # 0.8 10^3/ul (0.3-0.9); MONOCYTES % 13.8 % (0.0-11.0); NEUTROPHIL # 3.5 10^3/ul (1.6-7.5); NEUTROPHILS % 58.2 % (39.0-77.0); PLATELET COUNT 533 10^3/UL (140-415); RED BLOOD COUNT 3.75 10^6/ul (4.20-5.40); RED CELL DISTRIBUTION WIDTH 16.8 % (11.5-14.5)
[2017-12-25 05:46] LABS: WHITE BLOOD COUNT 6.1 10^3/ul (4.8-10.8)
[2017-12-25 06:03] LABS: ALANINE AMINOTRANSFERASE 21 IU/L (13-69); ALBUMIN 2.9 g/dl (3.3-4.9); ALBUMIN/GLOBULIN RATIO 0.96; ALKALINE PHOSPHATASE 65 IU/L (42-121); ANION GAP 12 (8-16); ASPARTATE AMINO TRANSFERASE 23 IU/L (15-46); BILIRUBIN,INDIRECT 0.6 mg/dl (0-1.1); BILIRUBIN,TOTAL 0.6 mg/dl (0.2-1.3); BLOOD UREA NITROGEN 5 mg/dl (7-20); CALCIUM 7.6 mg/dl (8.4-10.2); CARBON DIOXIDE 24 mmol/L (21-31); CHLORIDE 110 mmol/L (97-110); CREATININE 0.57 mg/dl (0.44-1.00); GLUCOSE 149 mg/dl (70-220); POTASSIUM 3.1 mmol/L (3.5-5.1); SODIUM 143 mmol/L (135-144); TOTAL PROTEIN 5.9 g/dl (6.1-8.1)
[2017-12-25] MEDS: AMLODIPINE 5 MG TAB PO (08:25)
[2017-12-25] MEDS: METOPROLOL (XL) 50 MG TAB PO (08:25)
[2017-12-25] MEDS: BISACODYL (EC) 5 MG TAB PO (08:25)
[2017-12-25 09:15] LABS: IRON 28 ug/dl (35-150)
[2017-12-25 09:25] LABS: % IRON SATURATION 7 % SAT (22-52); TOTAL IRON BINDING CAPACITY 418 ug/dl (241-421)
[2017-12-25 09:53] LABS: FERRITIN 13.6 ng/ml (11.1-264.0)
[2017-12-25 10:53] LABS: CARCINOEMBRYONIC ANTIGEN 1.5 ng/ml (0.0-5.0)
[2017-12-25] MEDS: ACETAMINOPHEN 325 MG TAB PO (11:17)
[2017-12-25] MEDS: DEXTROSE 5%-0.45% NACL 1,000 ML IV (13:15)
[2017-12-25] MEDS ORDERED: MIDAZOLAM 1 MG/ML 2 ML INJ (13:19)
[2017-12-25] MEDS: SOD CHLORIDE 0.9% 500 ML (15:00)
[2017-12-25] MEDS: FENTAnyl 50 MCG/ML VIAL (15:05)
[2017-12-25] MEDS: LIDOCAINE 1% (MDV) 10 ML INJ (15:06)
[2017-12-25] MEDS: POTASSIUM CHLORIDE 100 ML IVPB ×3 (16:33→21:00)
[2017-12-25 17:05] LABS: HEMATOCRIT 31.8 % (37.0-47.0)
[2017-12-25] MEDS: ATORVASTATIN 20 MG TAB PO (20:58)
[2017-12-25] MEDS: INSULIN GLARGINE [LANtus] 3 ML PEN SC (21:01)
[2017-12-25] MEDS: POTASSIUM CHLORIDE (SR) 20 MEQ TAB PO (22:55)
[2017-12-25 23:41] LABS: HEMATOCRIT 30.4 % (37.0-47.0); HEMOGLOBIN 9.7 g/dl (12.0-16.0)
[2017-12-26] MEDS: Insulin NOVOLOG SS MILD Algorithm (NPO/TPN/ENTERAL FEEDS) SC ×6 (01:00→20:36)
[2017-12-26] MEDS: ACCUCHECK AT 2AM (Patients on SS coverage) XX (01:39)
[2017-12-26] MEDS: DEXTROSE 5%-0.45% NACL 1,000 ML IV (04:30)
[2017-12-26] MEDS: PANTOPRAZOLE 40 MG INJ IV (05:46)
[2017-12-26] MEDS: SOD CHLORIDE 0.9% 1,000 ML IV ×2 (06:30→18:33)
[2017-12-26 06:42] LABS: ALBUMIN 2.8 g/dl (3.3-4.9); ANION GAP 10 (8-16); BLOOD UREA NITROGEN 5 mg/dl (7-20); CALCIUM 8.1 mg/dl (8.4-10.2); CARBON DIOXIDE 24 mmol/L (21-31); CHLORIDE 114 mmol/L (97-110); CREATININE 0.56 mg/dl (0.44-1.00); GLUCOSE 111 mg/dl (70-220); MAGNESIUM 1.8 mg/dl (1.7-2.5); SODIUM 144 mmol/L (135-144)
[2017-12-26 06:47] LABS: ANION GAP 10 (8-16); BLOOD UREA NITROGEN 5 mg/dl (7-20); CALCIUM 8.3 mg/dl (8.4-10.2); CARBON DIOXIDE 26 mmol/L (21-31); CHLORIDE 114 mmol/L (97-110); CREATININE 0.61 mg/dl (0.44-1.00); GLUCOSE 109 mg/dl (70-220); POTASSIUM 4.6 mmol/L (3.5-5.1); SODIUM 145 mmol/L (135-144)
[2017-12-26] MEDS: AMLODIPINE 5 MG TAB PO (08:18)
[2017-12-26] MEDS: METOPROLOL (XL) 50 MG TAB PO (08:18)
[2017-12-26 08:44] LABS: LACTATE DEHYDROGENASE 561 IU/L (313-618)
[2017-12-26 09:10] LABS: IMMUNOGLOBULIN G 915 mg/dl (700-1600)
[2017-12-26 09:29] LABS: IMMUNOGLOBULIN A 287 mg/dl (70-400); IMMUNOGLOBULIN M 57 mg/dl (40-230)
[2017-12-26] MEDS: PROPOFOL 40 ML (17:07)
[2017-12-26] MEDS: ATORVASTATIN 20 MG TAB PO (20:33)
[2017-12-26] MEDS: SOD FERRIC GLUC COMPLX 125 MG in SOD CHLORIDE 0.9% 100 ML IVPB (20:33)
[2017-12-26] MEDS: INSULIN GLARGINE [LANtus] 3 ML PEN SC (20:35)
[2017-12-27] MEDS: ACCUCHECK AT 2AM (Patients on SS coverage) XX (02:00)
[2017-12-27] MEDS: Insulin NOVOLOG SS MILD Algorithm (NPO/TPN/ENTERAL FEEDS) SC ×4 (02:34→12:02)
[2017-12-27] MEDS: PANTOPRAZOLE 40 MG INJ IV (05:00)
[2017-12-27 05:11] LABS: PROTEIN, TOTAL 5.4 g/dL (6.1-8.1)
[2017-12-27 07:23] LABS: ADD MAN DIFF? NO
[2017-12-27 07:37] LABS: WHITE BLOOD COUNT 6.9 10^3/ul (4.8-10.8)
[2017-12-27 07:37] LABS: BASOPHILS % 0.4 % (0.0-2.0); EOSINOPHILS # 0.1 10^3/ul (0.0-0.5); EOSINOPHILS % 0.9 % (0.0-7.0); HEMATOCRIT 28.1 % (37.0-47.0); HEMOGLOBIN 8.7 g/dl (12.0-16.0); LYMPHOCYTES # 1.3 10^3/ul (0.8-2.9); LYMPHOCYTES % 19.1 % (15.0-51.0); MEAN CORPUSCULAR HEMOGLOBIN 26.1 pg (29.0-33.0); MEAN CORPUSCULAR VOLUME 84.4 fl (82.0-101.0); MEAN PLATELET VOLUME 9.5 fl (7.4-10.4); NEUTROPHIL # 4.4 10^3/ul (1.6-7.5); NEUTROPHILS % 64.3 % (39.0-77.0); PLATELET COUNT 443 10^3/UL (140-415); RED BLOOD COUNT 3.33 10^6/ul (4.20-5.40); RED CELL DISTRIBUTION WIDTH 16.8 % (11.5-14.5)
[2017-12-27 07:54] LABS: ALBUMIN 2.5 g/dl (3.3-4.9); ANION GAP 10 (8-16); BLOOD UREA NITROGEN 9 mg/dl (7-20); CALCIUM 8.2 mg/dl (8.4-10.2); CARBON DIOXIDE 24 mmol/L (21-31); CHLORIDE 111 mmol/L (97-110); CREATININE 0.69 mg/dl (0.44-1.00); GLUCOSE 132 mg/dl (70-220); MAGNESIUM 1.7 mg/dl (1.7-2.5); POTASSIUM 3.9 mmol/L (3.5-5.1); SODIUM 141 mmol/L (135-144)
[2017-12-27] MEDS: AMLODIPINE 5 MG TAB PO (08:54)
[2017-12-27] MEDS: METOPROLOL (XL) 50 MG TAB PO (08:55)
[2017-12-27] MEDS: MAGNESIUM SULFATE 2 GM/50 ML 50 ML IVPB (13:27)
[2017-12-27 15:41] LABS: BETA-2 MICROGLOBULIN 2.19 mg/L (< OR = 2.51)
[2017-12-27] MEDS ORDERED: SOD FERRIC GLUC COMPLX 125 MG in SOD CHLORIDE 0.9% 100 ML IVPB (17:00)
[2017-12-27] MEDS: SOD FERRIC GLUC COMPLX 125 MG in SOD CHLORIDE 0.9% 100 ML IVPB (17:24)
[2017-12-27] MEDS: Insulin NOVOLOG SS MILD Algorithm (SS with meals and bedtime) SC ×2 (17:26→20:35)
[2017-12-27] MEDS ORDERED: INSULIN ASPART [NOVOLOG] 3 ML PEN SC (17:35)
[2017-12-27] MEDS: ATORVASTATIN 20 MG TAB PO (20:32)
[2017-12-27] MEDS: INSULIN GLARGINE [LANtus] 3 ML PEN SC (20:33)
[2017-12-27] MEDS: SOD CHLORIDE 0.9% 1,000 ML IV (20:39)
[2017-12-27 22:24] LABS: ALBUMIN 2.8 g/dL (3.8-4.8); ALPHA-1-GLOBULINS 0.4 g/dL (0.2-0.3); ALPHA-2-GLOBULINS 0.6 g/dL (0.5-0.9); BETA 2 GLOBULINS 0.4 g/dL (0.2-0.5); BETA GLOBULINS 0.4 g/dL (0.4-0.6); GAMMA GLOBULINS 0.8 g/dL (0.8-1.7)
[2017-12-28] MEDS: ACCUCHECK AT 2AM (Patients on SS coverage) XX (01:39)
[2017-12-28] MEDS: PANTOPRAZOLE 40 MG INJ IV (05:14)
[2017-12-28 05:55] LABS: ADD MAN DIFF? NO
[2017-12-28 06:04] LABS: WHITE BLOOD COUNT 6.5 10^3/ul (4.8-10.8)
[2017-12-28 06:04] LABS: BASOPHIL # 0.1 10^3/ul (0.0-0.1); BASOPHILS % 0.8 % (0.0-2.0); EOSINOPHILS # 0.1 10^3/ul (0.0-0.5); EOSINOPHILS % 1.1 % (0.0-7.0); HEMATOCRIT 28.1 % (37.0-47.0); HEMOGLOBIN 8.7 g/dl (12.0-16.0); LYMPHOCYTES # 1.4 10^3/ul (0.8-2.9); MEAN CORPUSCULAR VOLUME 83.9 fl (82.0-101.0); MEAN PLATELET VOLUME 9.8 fl (7.4-10.4); MONOCYTES % 15.2 % (0.0-11.0); NEUTROPHILS % 60.6 % (39.0-77.0); NUCLEATED RED BLOOD CELLS% 0.6 /100WBC (0.0-0.0); PLATELET COUNT 435 10^3/UL (140-415); RED BLOOD COUNT 3.35 10^6/ul (4.20-5.40); RED CELL DISTRIBUTION WIDTH 16.8 % (11.5-14.5)
[2017-12-28 06:21] LABS: INR 1.11; PROTIME 14.5 Sec (11.9-14.9); PT RATIO 1.1
[2017-12-28 06:24] LABS: D-DIMER 3521.07 ng/ml (<460)
[2017-12-28 06:45] LABS: ALBUMIN 2.7 g/dl (3.3-4.9); ANION GAP 9 (8-16); BLOOD UREA NITROGEN 8 mg/dl (7-20); CARBON DIOXIDE 28 mmol/L (21-31); CHLORIDE 108 mmol/L (97-110); CREATININE 0.58 mg/dl (0.44-1.00); GLUCOSE 200 mg/dl (70-220); MAGNESIUM 1.8 mg/dl (1.7-2.5); PHOSPHORUS 2.7 mg/dl (2.5-4.9); POTASSIUM 3.2 mmol/L (3.5-5.1); SODIUM 142 mmol/L (135-144)
[2017-12-28] MEDS: Insulin NOVOLOG SS MILD Algorithm (SS with meals and bedtime) SC ×4 (08:11→20:22)
[2017-12-28] MEDS: AMLODIPINE 5 MG TAB PO (08:11)
[2017-12-28] MEDS: METOPROLOL (XL) 50 MG TAB PO (08:12)
[2017-12-28] MEDS: POTASSIUM CHLORIDE (SR) 20 MEQ TAB PO ×2 (09:12→12:12)
[2017-12-28] MEDS: ENOXAPARIN 80 MG/0.8 ML SYG SC ×2 (15:14→20:24)
[2017-12-28 16:36] LABS: OCCULT BLOOD STOOL NEGATIVE (NEGATIVE)
[2017-12-28] MEDS: SOD FERRIC GLUC COMPLX 125 MG in SOD CHLORIDE 0.9% 100 ML IVPB (16:54)
[2017-12-28] MEDS: SOD CHLORIDE 0.9% 1,000 ML IV (17:03)
[2017-12-28] MEDS: INSULIN GLARGINE [LANtus] 3 ML PEN SC (20:20)
[2017-12-28] MEDS: ATORVASTATIN 20 MG TAB PO (20:24)
[2017-12-29] MEDS: ACCUCHECK AT 2AM (Patients on SS coverage) XX (02:35)
[2017-12-29] MEDS: PANTOPRAZOLE 40 MG INJ IV (05:28)
[2017-12-29 06:02] LABS: ADD MAN DIFF? NO
[2017-12-29 06:10] LABS: BASOPHIL # 0.1 10^3/ul (0.0-0.1); BASOPHILS % 0.7 % (0.0-2.0); EOSINOPHILS # 0.1 10^3/ul (0.0-0.5); EOSINOPHILS % 1.2 % (0.0-7.0); HEMATOCRIT 27.9 % (37.0-47.0); HEMOGLOBIN 8.7 g/dl (12.0-16.0); LYMPHOCYTES % 24.5 % (15.0-51.0); MEAN CORPUSCULAR HEMOGLOBIN 26.6 pg (29.0-33.0); MEAN CORPUSCULAR HGB CONC 31.2 g/dl (32.0-37.0); MEAN CORPUSCULAR VOLUME 85.3 fl (82.0-101.0); MEAN PLATELET VOLUME 9.6 fl (7.4-10.4); MONOCYTE # 1.2 10^3/ul (0.3-0.9); NEUTROPHIL # 4.9 10^3/ul (1.6-7.5); NUCLEATED RED BLOOD CELLS # 0.1 10^3/ul (0.0-0.0); NUCLEATED RED BLOOD CELLS% 1.6 /100WBC (0.0-0.0); PLATELET COUNT 416 10^3/UL (140-415); RED BLOOD COUNT 3.27 10^6/ul (4.20-5.40); RED CELL DISTRIBUTION WIDTH 17.2 % (11.5-14.5)
[2017-12-29 06:10] LABS: WHITE BLOOD COUNT 8.3 10^3/ul (4.8-10.8)
[2017-12-29 06:38] LABS: ALBUMIN 2.7 g/dl (3.3-4.9); ANION GAP 12 (8-16); BLOOD UREA NITROGEN 10 mg/dl (7-20); CALCIUM 8.1 mg/dl (8.4-10.2); CARBON DIOXIDE 25 mmol/L (21-31); CHLORIDE 109 mmol/L (97-110); CREATININE 0.49 mg/dl (0.44-1.00); GLUCOSE 174 mg/dl (70-220); MAGNESIUM 1.5 mg/dl (1.7-2.5); PHOSPHORUS 2.7 mg/dl (2.5-4.9); POTASSIUM 3.7 mmol/L (3.5-5.1); SODIUM 142 mmol/L (135-144)
[2017-12-29] MEDS: Insulin NOVOLOG SS MILD Algorithm (SS with meals and bedtime) SC ×4 (08:52→21:10)
[2017-12-29] MEDS: ENOXAPARIN 80 MG/0.8 ML SYG SC ×2 (09:02→21:12)
[2017-12-29] MEDS: METOPROLOL (XL) 50 MG TAB PO (09:03)
[2017-12-29] MEDS: AMLODIPINE 5 MG TAB PO (09:03)
[2017-12-29] MEDS: MAGNESIUM OXIDE 400 MG TAB PO (12:39)
[2017-12-29] MEDS: SOD CHLORIDE 0.9% 1,000 ML IV ×2 (14:30→19:06)
[2017-12-29] MEDS: INSULIN GLARGINE [LANtus] 3 ML PEN SC (21:10)
[2017-12-29] MEDS: ATORVASTATIN 20 MG TAB PO (21:12)
[2017-12-30] MEDS: ACCUCHECK AT 2AM (Patients on SS coverage) XX (02:00)
[2017-12-30 02:40] LABS: OCCULT BLOOD STOOL POSITIVE (NEGATIVE)
[2017-12-30] MEDS: PANTOPRAZOLE 40 MG INJ IV (05:42)
[2017-12-30 06:11] LABS: ADD MAN DIFF? NO
[2017-12-30 06:16] LABS: BASOPHIL # 0.1 10^3/ul (0.0-0.1); BASOPHILS % 0.7 % (0.0-2.0); EOSINOPHILS # 0.1 10^3/ul (0.0-0.5); EOSINOPHILS % 1.2 % (0.0-7.0); HEMATOCRIT 29.2 % (37.0-47.0); HEMOGLOBIN 9.1 g/dl (12.0-16.0); LYMPHOCYTES # 2.4 10^3/ul (0.8-2.9); LYMPHOCYTES % 27.6 % (15.0-51.0); MEAN CORPUSCULAR HEMOGLOBIN 27.5 pg (29.0-33.0); MEAN CORPUSCULAR HGB CONC 31.2 g/dl (32.0-37.0); MEAN CORPUSCULAR VOLUME 88.2 fl (82.0-101.0); MEAN PLATELET VOLUME 9.9 fl (7.4-10.4); MONOCYTES % 11.5 % (0.0-11.0); NEUTROPHIL # 5.1 10^3/ul (1.6-7.5); NUCLEATED RED BLOOD CELLS # 0.1 10^3/ul (0.0-0.0); NUCLEATED RED BLOOD CELLS% 1.6 /100WBC (0.0-0.0); PLATELET COUNT 428 10^3/UL (140-415); RED BLOOD COUNT 3.31 10^6/ul (4.20-5.40); RED CELL DISTRIBUTION WIDTH 19.1 % (11.5-14.5)
[2017-12-30 06:16] LABS: WHITE BLOOD COUNT 8.8 10^3/ul (4.8-10.8)
[2017-12-30 06:37] LABS: ALBUMIN 2.9 g/dl (3.3-4.9); ANION GAP 13 (8-16); BLOOD UREA NITROGEN 13 mg/dl (7-20); CALCIUM 8.7 mg/dl (8.4-10.2); CARBON DIOXIDE 28 mmol/L (21-31); CHLORIDE 105 mmol/L (97-110); CREATININE 0.61 mg/dl (0.44-1.00); GLUCOSE 205 mg/dl (70-220); MAGNESIUM 1.4 mg/dl (1.7-2.5); POTASSIUM 4.2 mmol/L (3.5-5.1); SODIUM 142 mmol/L (135-144)
[2017-12-30] MEDS: ENOXAPARIN 80 MG/0.8 ML SYG SC (08:07)
[2017-12-30] MEDS: Insulin NOVOLOG SS MILD Algorithm (SS with meals and bedtime) SC ×4 (08:07→21:00)
[2017-12-30] MEDS: AMLODIPINE 5 MG TAB PO (08:17)
[2017-12-30] MEDS: METOPROLOL (XL) 50 MG TAB PO (08:17)
[2017-12-30] MEDS: SOD CHLORIDE 0.9% 1,000 ML IV ×2 (10:30→20:49)
[2017-12-30] MEDS: MAGNESIUM OXIDE 400 MG TAB PO (15:31)
[2017-12-30] MEDS: ATORVASTATIN 20 MG TAB PO (20:50)
[2017-12-30] MEDS: ENOXAPARIN 60 MG/0.6 ML SYG SC (20:51)
[2017-12-30] MEDS: INSULIN GLARGINE [LANtus] 3 ML PEN SC (20:58)
[2017-12-30] MEDS: INSULIN ASPART [NOVOLOG] 3 ML PEN SC ×2 (21:07→23:20)
[2017-12-31] MEDS: ACCUCHECK AT 2AM (Patients on SS coverage) XX (01:30)
[2017-12-31] MEDS: INSULIN ASPART [NOVOLOG] 3 ML PEN SC ×4 (02:20→21:41)
[2017-12-31] MEDS: PANTOPRAZOLE 40 MG INJ IV (05:33)
[2017-12-31 06:16] LABS: ADD MAN DIFF? NO
[2017-12-31 06:18] LABS: WHITE BLOOD COUNT 8.5 10^3/ul (4.8-10.8)
[2017-12-31 06:18] LABS: BASOPHIL # 0.1 10^3/ul (0.0-0.1); BASOPHILS % 0.9 % (0.0-2.0); EOSINOPHILS # 0.1 10^3/ul (0.0-0.5); EOSINOPHILS % 1.7 % (0.0-7.0); HEMATOCRIT 26.1 % (37.0-47.0); HEMOGLOBIN 8.1 g/dl (12.0-16.0); LYMPHOCYTES # 2.1 10^3/ul (0.8-2.9); LYMPHOCYTES % 25.1 % (15.0-51.0); MEAN CORPUSCULAR HEMOGLOBIN 27.9 pg (29.0-33.0); MEAN PLATELET VOLUME 10.2 fl (7.4-10.4); MONOCYTE # 1.2 10^3/ul (0.3-0.9); MONOCYTES % 13.7 % (0.0-11.0); NEUTROPHIL # 4.9 10^3/ul (1.6-7.5); NEUTROPHILS % 57.5 % (39.0-77.0); NUCLEATED RED BLOOD CELLS # 0.3 10^3/ul (0.0-0.0); NUCLEATED RED BLOOD CELLS% 3.3 /100WBC (0.0-0.0); PLATELET COUNT 349 10^3/UL (140-415); RED CELL DISTRIBUTION WIDTH 20.7 % (11.5-14.5)
[2017-12-31 06:40] LABS: ALBUMIN 2.8 g/dl (3.3-4.9); ANION GAP 12 (8-16); BLOOD UREA NITROGEN 13 mg/dl (7-20); CALCIUM 8.3 mg/dl (8.4-10.2); CARBON DIOXIDE 28 mmol/L (21-31); CHLORIDE 108 mmol/L (97-110); GLUCOSE 121 mg/dl (70-220); MAGNESIUM 1.4 mg/dl (1.7-2.5); PHOSPHORUS 3.8 mg/dl (2.5-4.9); POTASSIUM 3.3 mmol/L (3.5-5.1); SODIUM 145 mmol/L (135-144)
[2017-12-31] MEDS: Insulin NOVOLOG SS MILD Algorithm (SS with meals and bedtime) SC ×2 (07:30→11:53)
[2017-12-31] MEDS: AMLODIPINE 5 MG TAB PO (08:18)
[2017-12-31] MEDS: METOPROLOL (XL) 50 MG TAB PO (08:18)
[2017-12-31] MEDS: ENOXAPARIN 60 MG/0.6 ML SYG SC ×2 (08:20→21:40)
[2017-12-31] MEDS: POTASSIUM CHLORIDE (SR) 20 MEQ TAB PO ×2 (09:07→12:00)
[2017-12-31] MEDS: MAGNESIUM OXIDE 400 MG TAB PO ×2 (09:07→21:39)
[2017-12-31] MEDS: FERROUS SULFATE (EC) 325 MG TAB PO (11:58)
[2017-12-31] MEDS: SOD CHLORIDE 0.9% 1,000 ML IV (19:23)
[2017-12-31 20:49] LABS: OCCULT BLOOD STOOL POSITIVE (NEGATIVE)
[2017-12-31] MEDS: ATORVASTATIN 20 MG TAB PO (21:39)
[2017-12-31] MEDS: INSULIN GLARGINE [LANtus] 3 ML PEN SC (21:41)
[2018-01-01] MEDS: ACCUCHECK AT 2AM (Patients on SS coverage) XX (02:00)
[2018-01-01] MEDS: SOD CHLORIDE 0.9% 1,000 ML IV ×2 (02:30→17:53)
[2018-01-01] MEDS: PANTOPRAZOLE 40 MG INJ IV ×2 (05:20→17:48)
[2018-01-01 07:13] LABS: ADD MAN DIFF? NO
[2018-01-01 07:19] LABS: ABNORMAL IP MESSAGE 1; BASOPHIL # 0.1 10^3/ul (0.0-0.1); BASOPHILS % 0.9 % (0.0-2.0); EOSINOPHILS # 0.1 10^3/ul (0.0-0.5); EOSINOPHILS % 1.2 % (0.0-7.0); HEMATOCRIT 26.2 % (37.0-47.0); HEMOGLOBIN 7.7 g/dl (12.0-16.0); LYMPHOCYTES # 1.9 10^3/ul (0.8-2.9); LYMPHOCYTES % 25.6 % (15.0-51.0); MEAN CORPUSCULAR HEMOGLOBIN 26.9 pg (29.0-33.0); MEAN CORPUSCULAR HGB CONC 29.4 g/dl (32.0-37.0); MEAN CORPUSCULAR VOLUME 91.6 fl (82.0-101.0); MEAN PLATELET VOLUME 10.4 fl (7.4-10.4); MONOCYTE # 0.9 10^3/ul (0.3-0.9); NEUTROPHIL # 4.5 10^3/ul (1.6-7.5); NEUTROPHILS % 59.5 % (39.0-77.0); NUCLEATED RED BLOOD CELLS # 0.1 10^3/ul (0.0-0.0); NUCLEATED RED BLOOD CELLS% 1.7 /100WBC (0.0-0.0); PLATELET COUNT 313 10^3/UL (140-415); RED BLOOD COUNT 2.86 10^6/ul (4.20-5.40); RED CELL DISTRIBUTION WIDTH 22.9 % (11.5-14.5)
[2018-01-01 07:19] LABS: WHITE BLOOD COUNT 7.5 10^3/ul (4.8-10.8)
[2018-01-01 07:25] LABS: POSITIVE DIFF @See below
[2018-01-01 07:43] LABS: ALBUMIN 2.8 g/dl (3.3-4.9); ANION GAP 11 (8-16); BLOOD UREA NITROGEN 12 mg/dl (7-20); CALCIUM 8.5 mg/dl (8.4-10.2); CARBON DIOXIDE 28 mmol/L (21-31); CHLORIDE 108 mmol/L (97-110); CREATININE 0.55 mg/dl (0.44-1.00); GLUCOSE 166 mg/dl (70-220); MAGNESIUM 1.6 mg/dl (1.7-2.5); SODIUM 143 mmol/L (135-144)
[2018-01-01] MEDS: FERROUS SULFATE (EC) 325 MG TAB PO (08:41)
[2018-01-01] MEDS: MAGNESIUM OXIDE 400 MG TAB PO ×2 (08:42→21:22)
[2018-01-01] MEDS: AMLODIPINE 5 MG TAB PO (08:42)
[2018-01-01] MEDS: METOPROLOL (XL) 50 MG TAB PO (08:43)
[2018-01-01] MEDS: ENOXAPARIN 60 MG/0.6 ML SYG SC (08:44)
[2018-01-01] MEDS: INSULIN ASPART [NOVOLOG] 3 ML PEN SC ×7 (08:46→21:23)
[2018-01-01] MEDS: BARIUM SULF 2% 450 ML BTL (BERRY SMOOTHIE) PO (10:30)
[2018-01-01 14:19] LABS: IMMEDIATE SPIN CROSSMATCH 1 1
[2018-01-01] MEDS: SOD CHLORIDE 0.9% 250 ML IV* (17:58)
[2018-01-01] MEDS: ATORVASTATIN 20 MG TAB PO (21:22)
[2018-01-01] MEDS: INSULIN GLARGINE [LANtus] 3 ML PEN SC (21:24)
[2018-01-02] MEDS: ACCUCHECK AT 2AM (Patients on SS coverage) XX (03:21)
[2018-01-02] MEDS: PANTOPRAZOLE 40 MG INJ IV ×2 (06:24→17:28)
[2018-01-02 06:53] LABS: ADD MAN DIFF? NO
[2018-01-02 07:00] LABS: WHITE BLOOD COUNT 7.1 10^3/ul (4.8-10.8)
[2018-01-02 07:00] LABS: BASOPHIL # 0.1 10^3/ul (0.0-0.1); BASOPHILS % 1.3 % (0.0-2.0); EOSINOPHILS # 0.1 10^3/ul (0.0-0.5); EOSINOPHILS % 1.1 % (0.0-7.0); HEMATOCRIT 30.3 % (37.0-47.0); HEMOGLOBIN 9.7 g/dl (12.0-16.0); LYMPHOCYTES # 1.7 10^3/ul (0.8-2.9); LYMPHOCYTES % 23.9 % (15.0-51.0); MEAN CORPUSCULAR HEMOGLOBIN 28.5 pg (29.0-33.0); MEAN CORPUSCULAR VOLUME 89.1 fl (82.0-101.0); MEAN PLATELET VOLUME 10.1 fl (7.4-10.4); MONOCYTE # 0.8 10^3/ul (0.3-0.9); MONOCYTES % 11.7 % (0.0-11.0); NEUTROPHIL # 4.4 10^3/ul (1.6-7.5); NEUTROPHILS % 61.3 % (39.0-77.0); NUCLEATED RED BLOOD CELLS% 0.6 /100WBC (0.0-0.0); PLATELET COUNT 283 10^3/UL (140-415); RED CELL DISTRIBUTION WIDTH 21.4 % (11.5-14.5)
[2018-01-02 07:26] LABS: ALBUMIN 2.8 g/dl (3.3-4.9); ANION GAP 14 (8-16); BLOOD UREA NITROGEN 12 mg/dl (7-20); CALCIUM 8.1 mg/dl (8.4-10.2); CARBON DIOXIDE 26 mmol/L (21-31); CHLORIDE 108 mmol/L (97-110); CREATININE 0.51 mg/dl (0.44-1.00); GLUCOSE 157 mg/dl (70-220); MAGNESIUM 1.7 mg/dl (1.7-2.5); PHOSPHORUS 3.9 mg/dl (2.5-4.9); POTASSIUM 3.6 mmol/L (3.5-5.1); SODIUM 144 mmol/L (135-144)
[2018-01-02] MEDS: INSULIN ASPART [NOVOLOG] 3 ML PEN SC ×7 (07:35→20:36)
[2018-01-02] MEDS: BARIUM SULFATE 0.1% 450 ML BTL (VOLUMEN) PO ×3 (07:55→08:35)
[2018-01-02] MEDS: GLUCAGON 1 MG INJ (09:09)
[2018-01-02] MEDS: IOHEXOL 100 ML (09:15)
[2018-01-02] MEDS: SOD CHLORIDE 0.9% 100 ML (09:15)
[2018-01-02] MEDS: FERROUS SULFATE (EC) 325 MG TAB PO (10:26)
[2018-01-02] MEDS: MAGNESIUM OXIDE 400 MG TAB PO ×2 (10:26→20:30)
[2018-01-02] MEDS: METOPROLOL (XL) 50 MG TAB PO (10:27)
[2018-01-02] MEDS: AMLODIPINE 5 MG TAB PO (10:28)
[2018-01-02] MEDS: SOD CHLORIDE 0.9% 1,000 ML IV (17:28)
[2018-01-02] MEDS: ATORVASTATIN 20 MG TAB PO (20:30)
[2018-01-02] MEDS: INSULIN GLARGINE [LANtus] 3 ML PEN SC (20:34)
[2018-01-03] MEDS: ACCUCHECK AT 2AM (Patients on SS coverage) XX (02:00)
[2018-01-03] MEDS: PANTOPRAZOLE 40 MG INJ IV (05:44)
[2018-01-03 06:15] LABS: ADD MAN DIFF? NO
[2018-01-03 06:19] LABS: WHITE BLOOD COUNT 7.8 10^3/ul (4.8-10.8)
[2018-01-03 06:19] LABS: BASOPHIL # 0.1 10^3/ul (0.0-0.1); BASOPHILS % 0.8 % (0.0-2.0); EOSINOPHILS # 0.1 10^3/ul (0.0-0.5); EOSINOPHILS % 1.4 % (0.0-7.0); HEMATOCRIT 31.1 % (37.0-47.0); HEMOGLOBIN 9.8 g/dl (12.0-16.0); LYMPHOCYTES # 1.5 10^3/ul (0.8-2.9); LYMPHOCYTES % 19.1 % (15.0-51.0); MEAN CORPUSCULAR HEMOGLOBIN 28.3 pg (29.0-33.0); MEAN CORPUSCULAR HGB CONC 31.5 g/dl (32.0-37.0); MEAN CORPUSCULAR VOLUME 89.9 fl (82.0-101.0); MEAN PLATELET VOLUME 10.1 fl (7.4-10.4); MONOCYTE # 0.8 10^3/ul (0.3-0.9); MONOCYTES % 9.6 % (0.0-11.0); NEUTROPHIL # 5.4 10^3/ul (1.6-7.5); NEUTROPHILS % 68.6 % (39.0-77.0); PLATELET COUNT 269 10^3/UL (140-415); RED BLOOD COUNT 3.46 10^6/ul (4.20-5.40); RED CELL DISTRIBUTION WIDTH 20.8 % (11.5-14.5)
[2018-01-03 06:50] LABS: ANION GAP 12 (8-16)
[2018-01-03 06:51] LABS: ALBUMIN 2.9 g/dl (3.3-4.9); BLOOD UREA NITROGEN 14 mg/dl (7-20); CALCIUM 8.3 mg/dl (8.4-10.2); CARBON DIOXIDE 27 mmol/L (21-31); CHLORIDE 108 mmol/L (97-110); CREATININE 0.65 mg/dl (0.44-1.00); GLUCOSE 194 mg/dl (70-220); MAGNESIUM 1.7 mg/dl (1.7-2.5); PHOSPHORUS 4.4 mg/dl (2.5-4.9); POTASSIUM 3.8 mmol/L (3.5-5.1); SODIUM 143 mmol/L (135-144)
[2018-01-03 08:09] LABS: OCCULT BLOOD STOOL POSITIVE (NEGATIVE)
[2018-01-03] MEDS: INSULIN ASPART [NOVOLOG] 3 ML PEN SC ×8 (08:20→20:56)
[2018-01-03] MEDS: AMLODIPINE 5 MG TAB PO (08:23)
[2018-01-03] MEDS: METOPROLOL (XL) 50 MG TAB PO (08:23)
[2018-01-03] MEDS: MAGNESIUM OXIDE 400 MG TAB PO ×2 (08:23→20:31)
[2018-01-03] MEDS: FERROUS SULFATE (EC) 325 MG TAB PO (08:23)
[2018-01-03] MEDS: IMATINIB 400 MG TAB PO (09:20)
[2018-01-03] MEDS ORDERED: MIDAZOLAM 1 MG/ML 2 ML INJ (15:19)
[2018-01-03] MEDS ORDERED: FENTAnyl 50 MCG/ML VIAL (15:19)
[2018-01-03] MEDS ORDERED: IODIXANOL LOCM 100 ML BTL (15:25)
[2018-01-03] MEDS ORDERED: HEPARIN 1000 UNITS/NS (A-LINE) 1,000 ML (15:25)
[2018-01-03] MEDS ORDERED: SOD CHLORIDE 0.9% 500 ML (15:26)
[2018-01-03] MEDS: ATORVASTATIN 20 MG TAB PO (20:31)
[2018-01-03] MEDS: INSULIN GLARGINE [LANtus] 3 ML PEN SC (20:51)
[2018-01-04] MEDS: ACCUCHECK AT 2AM (Patients on SS coverage) XX (02:00)
[2018-01-04 07:12] LABS: ADD MAN DIFF? NO
[2018-01-04 07:15] LABS: BASOPHIL # 0.1 10^3/ul (0.0-0.1); BASOPHILS % 0.6 % (0.0-2.0); EOSINOPHILS # 0.1 10^3/ul (0.0-0.5); EOSINOPHILS % 0.8 % (0.0-7.0); HEMOGLOBIN 9.7 g/dl (12.0-16.0); LYMPHOCYTES # 1.6 10^3/ul (0.8-2.9); LYMPHOCYTES % 20.3 % (15.0-51.0); MEAN CORPUSCULAR HEMOGLOBIN 27.8 pg (29.0-33.0); MEAN CORPUSCULAR HGB CONC 31.3 g/dl (32.0-37.0); MEAN CORPUSCULAR VOLUME 88.8 fl (82.0-101.0); MEAN PLATELET VOLUME 10.4 fl (7.4-10.4); MONOCYTE # 0.6 10^3/ul (0.3-0.9); MONOCYTES % 8.1 % (0.0-11.0); NEUTROPHIL # 5.5 10^3/ul (1.6-7.5); NEUTROPHILS % 69.7 % (39.0-77.0); PLATELET COUNT 299 10^3/UL (140-415); RED BLOOD COUNT 3.49 10^6/ul (4.20-5.40); RED CELL DISTRIBUTION WIDTH 20.9 % (11.5-14.5)
[2018-01-04 07:15] LABS: WHITE BLOOD COUNT 7.8 10^3/ul (4.8-10.8)
[2018-01-04 07:56] LABS: ANION GAP 9 (8-16); BLOOD UREA NITROGEN 19 mg/dl (7-20); CALCIUM 8.1 mg/dl (8.4-10.2); CARBON DIOXIDE 25 mmol/L (21-31); CHLORIDE 109 mmol/L (97-110); CREATININE 0.73 mg/dl (0.44-1.00); GLUCOSE 202 mg/dl (70-220); MAGNESIUM 1.9 mg/dl (1.7-2.5); PHOSPHORUS 4.4 mg/dl (2.5-4.9); POTASSIUM 3.7 mmol/L (3.5-5.1); SODIUM 139 mmol/L (135-144)
[2018-01-04] MEDS: INSULIN ASPART [NOVOLOG] 3 ML PEN SC ×7 (08:35→20:51)
[2018-01-04] MEDS: IMATINIB 400 MG TAB PO (08:37)
[2018-01-04] MEDS: PANTOPRAZOLE 40 MG INJ IV (08:37)
[2018-01-04] MEDS: MAGNESIUM OXIDE 400 MG TAB PO ×2 (08:38→21:11)
[2018-01-04] MEDS: FERROUS SULFATE (EC) 325 MG TAB PO (08:38)
[2018-01-04] MEDS: AMLODIPINE 5 MG TAB PO (08:40)
[2018-01-04] MEDS: METOPROLOL (XL) 50 MG TAB PO (08:40)
[2018-01-04] MEDS: HYDROCODONE/APAP (5/325) TAB PO (17:13)
[2018-01-04] MEDS: INSULIN GLARGINE [LANtus] 3 ML PEN SC (20:49)
[2018-01-04] MEDS: ATORVASTATIN 20 MG TAB PO (21:11)
[2018-01-04] MEDS: morphine LIQ (10 MG/5 ML) CUP PO (21:11)
[2018-01-05] MEDS: ACCUCHECK AT 2AM (Patients on SS coverage) XX (02:00)
[2018-01-05 05:49] LABS: ADD MAN DIFF? NO
[2018-01-05 05:52] LABS: WHITE BLOOD COUNT 12.6 10^3/ul (4.8-10.8)
[2018-01-05 05:52] LABS: BASOPHILS % 0.2 % (0.0-2.0); EOSINOPHILS % 0.1 % (0.0-7.0); HEMATOCRIT 29.6 % (37.0-47.0); HEMOGLOBIN 9.3 g/dl (12.0-16.0); LYMPHOCYTES # 1.3 10^3/ul (0.8-2.9); LYMPHOCYTES % 10.2 % (15.0-51.0); MEAN CORPUSCULAR HEMOGLOBIN 28.4 pg (29.0-33.0); MEAN CORPUSCULAR HGB CONC 31.4 g/dl (32.0-37.0); MEAN CORPUSCULAR VOLUME 90.2 fl (82.0-101.0); MEAN PLATELET VOLUME 9.9 fl (7.4-10.4); MONOCYTE # 0.5 10^3/ul (0.3-0.9); MONOCYTES % 3.8 % (0.0-11.0); NEUTROPHIL # 10.7 10^3/ul (1.6-7.5); PLATELET COUNT 281 10^3/UL (140-415); RED BLOOD COUNT 3.28 10^6/ul (4.20-5.40); RED CELL DISTRIBUTION WIDTH 20.4 % (11.5-14.5)
[2018-01-05 06:17] LABS: ANION GAP 10 (8-16); BLOOD UREA NITROGEN 27 mg/dl (7-20); CALCIUM 8.1 mg/dl (8.4-10.2); CARBON DIOXIDE 25 mmol/L (21-31); CHLORIDE 102 mmol/L (97-110); CREATININE 0.95 mg/dl (0.44-1.00); GLUCOSE 206 mg/dl (70-220); MAGNESIUM 1.9 mg/dl (1.7-2.5); SODIUM 133 mmol/L (135-144)
[2018-01-05] MEDS: PANTOPRAZOLE 40 MG INJ IV (08:12)
[2018-01-05] MEDS: IMATINIB 400 MG TAB PO (08:12)
[2018-01-05] MEDS: MAGNESIUM OXIDE 400 MG TAB PO ×2 (08:12→21:16)
[2018-01-05] MEDS: INSULIN ASPART [NOVOLOG] 3 ML PEN SC ×7 (08:13→21:17)
[2018-01-05] MEDS: FERROUS SULFATE (EC) 325 MG TAB PO (08:16)
[2018-01-05] MEDS: AMLODIPINE 5 MG TAB PO (08:18)
[2018-01-05] MEDS: METOPROLOL (XL) 50 MG TAB PO (08:19)
[2018-01-05] MEDS: PIPER-TAZO 3.375 GM IV (PMX) 100 ML IVPB ×3 (12:21→23:47)
[2018-01-05 12:48] LABS: OCCULT BLOOD STOOL POSITIVE (NEGATIVE)
[2018-01-05] MEDS: SUCRALFATE (100 MG/ML) 10ML CUP PO ×3 (13:00→21:16)
[2018-01-05] MEDS ORDERED: BARIUM SULF 2% 450 ML BTL (BERRY SMOOTHIE) PO (14:30)
[2018-01-05 14:50] LABS: LACTIC ACID 3.4 mmol/L (0.5-2.0)
[2018-01-05 16:17] LABS: ADD UMIC YES; UR ASCORBIC ACID NEGATIVE (NEGATIVE); UR BILIRUBIN (Dip) NEGATIVE (NEGATIVE); UR BLOOD (Dip) 1+ mg/dL (NEGATIVE); UR CLARITY CLOUDY (CLEAR); UR COLOR AMBER (YELLOW); UR GLUCOSE (Dip) 1+ mg/dL (NEGATIVE); UR KETONES (Dip) NEGATIVE (NEGATIVE); UR LEUKOCYTE ESTERASE (Dip) NEGATIVE Leu/ul (NEGATIVE); UR MUCUS FEW /HPF (NONE SEEN); UR NITRITE (Dip) NEGATIVE (NEGATIVE); UR RBC 1 /HPF (0-5); UR SPECIFIC GRAVITY (Dip) 1.017 (1.003-1.030); UR SQUAMOUS EPITHELIAL CELL FEW /HPF (FEW); UR TOTAL PROTEIN (Dip) NEGATIVE (NEGATIVE); UR UROBILINOGEN (Dip) NEGATIVE (NEGATIVE); UR WBC 8 /HPF (0-5)
[2018-01-05] MEDS: SOD CHLORIDE 0.9% 1,000 ML IV (16:31)
[2018-01-05 21:00] LABS: LACTIC ACID 1.7 mmol/L (0.5-2.0)
[2018-01-05] MEDS: ATORVASTATIN 20 MG TAB PO (21:16)
[2018-01-05] MEDS: INSULIN GLARGINE [LANtus] 3 ML PEN SC (21:17)
[2018-01-06] MEDS: ACCUCHECK AT 2AM (Patients on SS coverage) XX (02:02)
[2018-01-06] MEDS: PANTOPRAZOLE (EC) 40 MG TAB PO (05:46)
[2018-01-06] MEDS: SOD CHLORIDE 0.9% 1,000 ML IV ×2 (05:46→11:30)
[2018-01-06] MEDS: PIPER-TAZO 3.375 GM IV (PMX) 100 ML IVPB ×3 (05:46→17:25)
[2018-01-06 06:04] LABS: ADD MAN DIFF? NO
[2018-01-06 06:16] LABS: WHITE BLOOD COUNT 9.1 10^3/ul (4.8-10.8)
[2018-01-06 06:16] LABS: BASOPHILS % 0.3 % (0.0-2.0); EOSINOPHILS % 0.4 % (0.0-7.0); HEMATOCRIT 25.4 % (37.0-47.0); LYMPHOCYTES % 11.2 % (15.0-51.0); MEAN CORPUSCULAR HEMOGLOBIN 28.1 pg (29.0-33.0); MEAN CORPUSCULAR HGB CONC 31.5 g/dl (32.0-37.0); MEAN CORPUSCULAR VOLUME 89.1 fl (82.0-101.0); MEAN PLATELET VOLUME 10.1 fl (7.4-10.4); MONOCYTE # 0.6 10^3/ul (0.3-0.9); MONOCYTES % 6.9 % (0.0-11.0); NEUTROPHIL # 7.4 10^3/ul (1.6-7.5); NEUTROPHILS % 80.8 % (39.0-77.0); PLATELET COUNT 271 10^3/UL (140-415); RED BLOOD COUNT 2.85 10^6/ul (4.20-5.40); RED CELL DISTRIBUTION WIDTH 19.7 % (11.5-14.5)
[2018-01-06 07:04] LABS: ANION GAP 11 (8-16); BLOOD UREA NITROGEN 25 mg/dl (7-20); CALCIUM 7.5 mg/dl (8.4-10.2); CARBON DIOXIDE 25 mmol/L (21-31); CHLORIDE 107 mmol/L (97-110); CREATININE 1.07 mg/dl (0.44-1.00); GLUCOSE 130 mg/dl (70-220); MAGNESIUM 2.4 mg/dl (1.7-2.5); PHOSPHORUS 4.1 mg/dl (2.5-4.9); POTASSIUM 3.7 mmol/L (3.5-5.1); SODIUM 139 mmol/L (135-144)
[2018-01-06] MEDS: INSULIN ASPART [NOVOLOG] 3 ML PEN SC ×7 (07:35→21:04)
[2018-01-06] MEDS: METOPROLOL (XL) 50 MG TAB PO (09:00)
[2018-01-06] MEDS: AMLODIPINE 5 MG TAB PO (09:00)
[2018-01-06] MEDS: SUCRALFATE (100 MG/ML) 10ML CUP PO ×4 (09:44→21:05)
[2018-01-06] MEDS: MAGNESIUM OXIDE 400 MG TAB PO ×2 (09:45→21:05)
[2018-01-06] MEDS: FERROUS SULFATE (EC) 325 MG TAB PO (09:45)
[2018-01-06] MEDS: IMATINIB 400 MG TAB PO (09:49)
[2018-01-06] MEDS: INSULIN GLARGINE [LANtus] 3 ML PEN SC (21:03)
[2018-01-06] MEDS: ATORVASTATIN 20 MG TAB PO (21:04)
[2018-01-07] MEDS: PIPER-TAZO 3.375 GM IV (PMX) 100 ML IVPB ×4 (00:18→20:39)
[2018-01-07] MEDS: HYDROCODONE/APAP (5/325) TAB PO ×3 (01:01→18:10)
[2018-01-07] MEDS: SOD CHLORIDE 0.9% 1,000 ML IV ×3 (01:01→17:30)
[2018-01-07] MEDS: ACCUCHECK AT 2AM (Patients on SS coverage) XX (02:05)
[2018-01-07 05:30] LABS: OCCULT BLOOD STOOL POSITIVE (NEGATIVE)
[2018-01-07] MEDS: PANTOPRAZOLE (EC) 40 MG TAB PO (05:36)
[2018-01-07 06:18] LABS: ADD MAN DIFF? NO
[2018-01-07 06:24] LABS: WHITE BLOOD COUNT 6.2 10^3/ul (4.8-10.8)
[2018-01-07 06:24] LABS: BASOPHILS % 0.5 % (0.0-2.0); EOSINOPHILS # 0.1 10^3/ul (0.0-0.5); EOSINOPHILS % 1.1 % (0.0-7.0); HEMATOCRIT 23.1 % (37.0-47.0); HEMOGLOBIN 7.3 g/dl (12.0-16.0); LYMPHOCYTES # 0.9 10^3/ul (0.8-2.9); LYMPHOCYTES % 14.9 % (15.0-51.0); MEAN CORPUSCULAR HEMOGLOBIN 28.4 pg (29.0-33.0); MEAN CORPUSCULAR HGB CONC 31.6 g/dl (32.0-37.0); MEAN CORPUSCULAR VOLUME 89.9 fl (82.0-101.0); MEAN PLATELET VOLUME 10.1 fl (7.4-10.4); MONOCYTE # 0.5 10^3/ul (0.3-0.9); MONOCYTES % 8.3 % (0.0-11.0); NEUTROPHIL # 4.6 10^3/ul (1.6-7.5); NEUTROPHILS % 74.9 % (39.0-77.0); PLATELET COUNT 320 10^3/UL (140-415); RED BLOOD COUNT 2.57 10^6/ul (4.20-5.40); RED CELL DISTRIBUTION WIDTH 19.4 % (11.5-14.5)
[2018-01-07] MEDS: BARIUM SULF 2% 450 ML BTL (BERRY SMOOTHIE) PO ×2 (07:00→12:10)
[2018-01-07] MEDS: INSULIN ASPART [NOVOLOG] 3 ML PEN SC ×7 (07:35→20:53)
[2018-01-07 07:51] LABS: ANION GAP 8 (8-16); BLOOD UREA NITROGEN 12 mg/dl (7-20); CALCIUM 6.9 mg/dl (8.4-10.2); CARBON DIOXIDE 24 mmol/L (21-31); CHLORIDE 111 mmol/L (97-110); CREATININE 0.72 mg/dl (0.44-1.00); GLUCOSE 93 mg/dl (70-220); MAGNESIUM 2.3 mg/dl (1.7-2.5); PHOSPHORUS 2.7 mg/dl (2.5-4.9); POTASSIUM 3.1 mmol/L (3.5-5.1); SODIUM 140 mmol/L (135-144)
[2018-01-07] MEDS: SUCRALFATE (100 MG/ML) 10ML CUP PO ×4 (09:00→20:43)
[2018-01-07] MEDS: METOPROLOL (XL) 25 MG TAB PO (09:00)
[2018-01-07] MEDS: FERROUS SULFATE (EC) 325 MG TAB PO (09:00)
[2018-01-07] MEDS: IMATINIB 400 MG TAB PO (09:00)
[2018-01-07] MEDS: MAGNESIUM OXIDE 400 MG TAB PO ×2 (09:00→20:43)
[2018-01-07] MEDS: POTASSIUM CHLORIDE 100 ML IVPB (13:05)
[2018-01-07] MEDS: POTASSIUM CHLORIDE (SR) 20 MEQ TAB PO (15:27)
[2018-01-07] MEDS: IOHEXOL 300MG/ML 150 ML BTL (16:14)
[2018-01-07] MEDS: SOD CHLORIDE 0.9% 100 ML (16:15)
[2018-01-07] MEDS ORDERED: IOHEXOL 300MG/ML 30 ML BTL (16:46)
[2018-01-07] MEDS ORDERED: SOD CHLORIDE 0.9% 100 ML ×2 (16:46→16:59)
[2018-01-07] MEDS ORDERED: IOHEXOL 300MG/ML 150 ML BTL (16:59)
[2018-01-07] MEDS: POTASSIUM CHLORIDE 20 MEQ POWDER FOR ORAL SOLN PO (18:10)
[2018-01-07] MEDS: SOD FERRIC GLUC COMPLX 125 MG in SOD CHLORIDE 0.9% 100 ML IVPB (18:14)
[2018-01-07] MEDS: ATORVASTATIN 20 MG TAB PO (20:41)
[2018-01-07] MEDS: INSULIN GLARGINE [LANtus] 3 ML PEN SC (20:48)
[2018-01-07 22:38] LABS: OCCULT BLOOD STOOL POSITIVE (NEGATIVE)
[2018-01-07] MEDS: SOD CHLORIDE 0.9% 250 ML IV* (23:04)
[2018-01-08] MEDS: HYDROCODONE/APAP (5/325) TAB PO ×2 (00:21→13:56)
[2018-01-08] MEDS: PIPER-TAZO 3.375 GM IV (PMX) 100 ML IVPB ×6 (01:06→23:58)
[2018-01-08 01:22] LABS: IMMEDIATE SPIN CROSSMATCH 1 2
[2018-01-08] MEDS: ACCUCHECK AT 2AM (Patients on SS coverage) XX (02:00)
[2018-01-08] MEDS: SOD CHLORIDE 0.9% 1,000 ML IV ×3 (04:15→14:33)
[2018-01-08] MEDS: PANTOPRAZOLE (EC) 40 MG TAB PO (05:33)
[2018-01-08 06:02] LABS: ADD MAN DIFF? NO
[2018-01-08 06:13] LABS: EOSINOPHILS # 0.1 10^3/ul (0.0-0.5); EOSINOPHILS % 2.1 % (0.0-7.0); HEMATOCRIT 28.5 % (37.0-47.0); HEMOGLOBIN 9.3 g/dl (12.0-16.0); LYMPHOCYTES # 0.8 10^3/ul (0.8-2.9); MEAN CORPUSCULAR HEMOGLOBIN 28.8 pg (29.0-33.0); MEAN CORPUSCULAR HGB CONC 32.6 g/dl (32.0-37.0); MEAN CORPUSCULAR VOLUME 88.2 fl (82.0-101.0); MEAN PLATELET VOLUME 9.5 fl (7.4-10.4); MONOCYTE # 0.4 10^3/ul (0.3-0.9); MONOCYTES % 10.2 % (0.0-11.0); NEUTROPHIL # 2.8 10^3/ul (1.6-7.5); NEUTROPHILS % 67.2 % (39.0-77.0); PLATELET COUNT 313 10^3/UL (140-415); RED BLOOD COUNT 3.23 10^6/ul (4.20-5.40); RED CELL DISTRIBUTION WIDTH 16.7 % (11.5-14.5)
[2018-01-08 06:13] LABS: WHITE BLOOD COUNT 4.2 10^3/ul (4.8-10.8)
[2018-01-08 06:45] LABS: ANION GAP 8 (8-16); BLOOD UREA NITROGEN 5 mg/dl (7-20); CARBON DIOXIDE 23 mmol/L (21-31); CHLORIDE 113 mmol/L (97-110); CREATININE 0.56 mg/dl (0.44-1.00); GLUCOSE 117 mg/dl (70-220); MAGNESIUM 2.2 mg/dl (1.7-2.5); PHOSPHORUS 1.9 mg/dl (2.5-4.9); POTASSIUM 3.8 mmol/L (3.5-5.1); SODIUM 140 mmol/L (135-144)
[2018-01-08] MEDS: INSULIN ASPART [NOVOLOG] 3 ML PEN SC ×7 (08:00→20:31)
[2018-01-08 08:29] LABS: ADD UMIC YES; UR ASCORBIC ACID NEGATIVE (NEGATIVE); UR BILIRUBIN (Dip) NEGATIVE (NEGATIVE); UR BLOOD (Dip) 2+ mg/dL (NEGATIVE); UR CLARITY CLEAR (CLEAR); UR COLOR STRAW (YELLOW); UR GLUCOSE (Dip) 2+ mg/dL (NEGATIVE); UR KETONES (Dip) NEGATIVE (NEGATIVE); UR LEUKOCYTE ESTERASE (Dip) NEGATIVE Leu/ul (NEGATIVE); UR NITRITE (Dip) NEGATIVE (NEGATIVE); UR RBC 1 /HPF (0-5); UR SPECIFIC GRAVITY (Dip) 1.021 (1.003-1.030); UR TOTAL PROTEIN (Dip) NEGATIVE (NEGATIVE); UR UROBILINOGEN (Dip) NEGATIVE (NEGATIVE); UR WBC 2 /HPF (0-5)
[2018-01-08] MEDS: FERROUS SULFATE (EC) 325 MG TAB PO (08:31)
[2018-01-08] MEDS: MAGNESIUM OXIDE 400 MG TAB PO ×2 (08:31→20:26)
[2018-01-08] MEDS: SUCRALFATE (100 MG/ML) 10ML CUP PO ×4 (08:31→20:26)
[2018-01-08] MEDS: METOPROLOL (XL) 25 MG TAB PO (08:32)
[2018-01-08] MEDS: IMATINIB 400 MG TAB PO (08:32)
[2018-01-08 14:16] LABS: OCCULT BLOOD STOOL POSITIVE (NEGATIVE)
[2018-01-08] MEDS: SOD FERRIC GLUC COMPLX 125 MG in SOD CHLORIDE 0.9% 100 ML IVPB (17:13)
[2018-01-08] MEDS: ATORVASTATIN 20 MG TAB PO (20:26)
[2018-01-08] MEDS: INSULIN GLARGINE [LANtus] 3 ML PEN SC (20:28)
[2018-01-09] MEDS: ACCUCHECK AT 2AM (Patients on SS coverage) XX (02:00)
[2018-01-09] MEDS: SOD CHLORIDE 0.9% 1,000 ML IV (05:01)
[2018-01-09] MEDS: PANTOPRAZOLE (EC) 40 MG TAB PO (05:22)
[2018-01-09] MEDS: PIPER-TAZO 3.375 GM IV (PMX) 100 ML IVPB ×3 (05:22→19:14)
[2018-01-09] MEDS: INSULIN ASPART [NOVOLOG] 3 ML PEN SC ×7 (07:35→21:11)
[2018-01-09] MEDS: MAGNESIUM OXIDE 400 MG TAB PO ×2 (08:53→21:09)
[2018-01-09] MEDS: FERROUS SULFATE (EC) 325 MG TAB PO (08:53)
[2018-01-09] MEDS: METOPROLOL (XL) 25 MG TAB PO (08:54)
[2018-01-09] MEDS: IMATINIB 400 MG TAB PO (08:56)
[2018-01-09] MEDS: SUCRALFATE (100 MG/ML) 10ML CUP PO ×4 (09:00→21:09)
[2018-01-09] MEDS: HYDROCODONE/APAP (5/325) TAB PO (13:19)
[2018-01-09 16:58] LABS: OCCULT BLOOD STOOL POSITIVE (NEGATIVE)
[2018-01-09] MEDS: SOD FERRIC GLUC COMPLX 125 MG in SOD CHLORIDE 0.9% 100 ML IVPB (17:39)
[2018-01-09] MEDS: morphine (ER) 15 MG TAB PO (21:09)
[2018-01-09] MEDS: ATORVASTATIN 20 MG TAB PO (21:09)
[2018-01-09] MEDS: INSULIN GLARGINE [LANtus] 3 ML PEN SC (21:10)
[2018-01-10] MEDS: PIPER-TAZO 3.375 GM IV (PMX) 100 ML IVPB ×4 (00:35→17:37)
[2018-01-10] MEDS: ACCUCHECK AT 2AM (Patients on SS coverage) XX (02:30)
[2018-01-10] MEDS: PANTOPRAZOLE (EC) 40 MG TAB PO (05:25)
[2018-01-10 05:36] LABS: ADD MAN DIFF? NO; BASOPHIL # 0.1 10^3/ul (0.0-0.1); BASOPHILS % 0.9 % (0.0-2.0); EOSINOPHILS # 0.2 10^3/ul (0.0-0.5); EOSINOPHILS % 3.2 % (0.0-7.0); HEMATOCRIT 29.3 % (37.0-47.0); HEMOGLOBIN 9.4 g/dl (12.0-16.0); LYMPHOCYTES # 1.2 10^3/ul (0.8-2.9); LYMPHOCYTES % 21.5 % (15.0-51.0); MEAN CORPUSCULAR HEMOGLOBIN 28.5 pg (29.0-33.0); MEAN CORPUSCULAR HGB CONC 32.1 g/dl (32.0-37.0); MEAN CORPUSCULAR VOLUME 88.8 fl (82.0-101.0); MEAN PLATELET VOLUME 9.2 fl (7.4-10.4); MONOCYTE # 0.4 10^3/ul (0.3-0.9); MONOCYTES % 7.8 % (0.0-11.0); NEUTROPHIL # 3.6 10^3/ul (1.6-7.5); NEUTROPHILS % 66.4 % (39.0-77.0); PLATELET COUNT 574 10^3/UL (140-415); RED CELL DISTRIBUTION WIDTH 17.4 % (11.5-14.5)
[2018-01-10 05:36] LABS: WHITE BLOOD COUNT 5.4 10^3/ul (4.8-10.8)
[2018-01-10 06:16] LABS: ALANINE AMINOTRANSFERASE 35 IU/L (13-69); ALBUMIN/GLOBULIN RATIO 0.71; ALKALINE PHOSPHATASE 102 IU/L (42-121); ANION GAP 9 (8-16); ASPARTATE AMINO TRANSFERASE 28 IU/L (15-46); BILIRUBIN,INDIRECT 0.3 mg/dl (0-1.1); BILIRUBIN,TOTAL 0.3 mg/dl (0.2-1.3); BLOOD UREA NITROGEN 6 mg/dl (7-20); CALCIUM 7.3 mg/dl (8.4-10.2); CARBON DIOXIDE 22 mmol/L (21-31); CHLORIDE 113 mmol/L (97-110); CREATININE 0.55 mg/dl (0.44-1.00); GLUCOSE 103 mg/dl (70-220); POTASSIUM 3.1 mmol/L (3.5-5.1); SODIUM 141 mmol/L (135-144); TOTAL PROTEIN 4.8 g/dl (6.1-8.1)
[2018-01-10] MEDS: INSULIN ASPART [NOVOLOG] 3 ML PEN SC ×7 (08:00→20:30)
[2018-01-10] MEDS: SUCRALFATE (100 MG/ML) 10ML CUP PO ×4 (08:55→20:26)
[2018-01-10] MEDS: MAGNESIUM OXIDE 400 MG TAB PO ×2 (08:55→20:26)
[2018-01-10] MEDS: morphine (ER) 15 MG TAB PO ×2 (08:56→20:27)
[2018-01-10] MEDS: IMATINIB 400 MG TAB PO (08:56)
[2018-01-10] MEDS: METOPROLOL (XL) 25 MG TAB PO (08:56)
[2018-01-10] MEDS: FERROUS SULFATE (EC) 325 MG TAB PO (08:57)
[2018-01-10] MEDS: POTASSIUM CHLORIDE (SR) 20 MEQ TAB PO ×2 (11:08→14:43)
[2018-01-10] MEDS: HYDROCODONE/APAP (5/325) TAB PO (17:12)
[2018-01-10] MEDS: MEGESTROL 40 MG TAB PO ×2 (17:12→20:26)
[2018-01-10] MEDS: ATORVASTATIN 20 MG TAB PO (20:27)
[2018-01-10] MEDS: INSULIN GLARGINE [LANtus] 3 ML PEN SC (20:29)
[2018-01-11] MEDS: PIPER-TAZO 3.375 GM IV (PMX) 100 ML IVPB ×4 (00:25→17:30)
[2018-01-11] MEDS: ACCUCHECK AT 2AM (Patients on SS coverage) XX (01:28)
[2018-01-11 05:47] LABS: ADD MAN DIFF? NO
[2018-01-11 05:53] LABS: WHITE BLOOD COUNT 6.2 10^3/ul (4.8-10.8)
[2018-01-11 05:53] LABS: BASOPHIL # 0.1 10^3/ul (0.0-0.1); EOSINOPHILS # 0.2 10^3/ul (0.0-0.5); EOSINOPHILS % 2.9 % (0.0-7.0); HEMATOCRIT 26.1 % (37.0-47.0); HEMOGLOBIN 8.4 g/dl (12.0-16.0); LYMPHOCYTES # 1.1 10^3/ul (0.8-2.9); LYMPHOCYTES % 18.2 % (15.0-51.0); MEAN CORPUSCULAR HEMOGLOBIN 29.2 pg (29.0-33.0); MEAN CORPUSCULAR HGB CONC 32.2 g/dl (32.0-37.0); MEAN CORPUSCULAR VOLUME 90.6 fl (82.0-101.0); MEAN PLATELET VOLUME 8.9 fl (7.4-10.4); MONOCYTE # 0.5 10^3/ul (0.3-0.9); MONOCYTES % 7.6 % (0.0-11.0); NEUTROPHIL # 4.4 10^3/ul (1.6-7.5); PLATELET COUNT 634 10^3/UL (140-415); RED BLOOD COUNT 2.88 10^6/ul (4.20-5.40); RED CELL DISTRIBUTION WIDTH 17.4 % (11.5-14.5)
[2018-01-11] MEDS: PANTOPRAZOLE (EC) 40 MG TAB PO (05:54)
[2018-01-11 06:34] LABS: ANION GAP 10 (8-16); BLOOD UREA NITROGEN 7 mg/dl (7-20); CALCIUM 7.7 mg/dl (8.4-10.2); CARBON DIOXIDE 23 mmol/L (21-31); CHLORIDE 109 mmol/L (97-110); CREATININE 0.53 mg/dl (0.44-1.00); GLUCOSE 180 mg/dl (70-220); MAGNESIUM 1.9 mg/dl (1.7-2.5); PHOSPHORUS 2.1 mg/dl (2.5-4.9); POTASSIUM 4.2 mmol/L (3.5-5.1); SODIUM 138 mmol/L (135-144)
[2018-01-11] MEDS: IMATINIB 400 MG TAB PO (08:32)
[2018-01-11] MEDS: FERROUS SULFATE (EC) 325 MG TAB PO (08:32)
[2018-01-11] MEDS: SUCRALFATE (100 MG/ML) 10ML CUP PO ×4 (08:32→20:53)
[2018-01-11] MEDS: MAGNESIUM OXIDE 400 MG TAB PO ×2 (08:33→20:53)
[2018-01-11] MEDS: MEGESTROL 40 MG TAB PO ×4 (08:33→20:53)
[2018-01-11] MEDS: INSULIN ASPART [NOVOLOG] 3 ML PEN SC ×7 (08:34→20:57)
[2018-01-11] MEDS: morphine (ER) 15 MG TAB PO ×2 (08:34→20:53)
[2018-01-11] MEDS: METOPROLOL (XL) 25 MG TAB PO (08:35)
[2018-01-11] MEDS: ACETAMINOPHEN 325 MG TAB PO (17:30)
[2018-01-11] MEDS: ATORVASTATIN 20 MG TAB PO (20:53)
[2018-01-11] MEDS: INSULIN GLARGINE [LANtus] 3 ML PEN SC (20:56)
[2018-01-12] MEDS: ACCUCHECK AT 2AM (Patients on SS coverage) XX (02:00)
[2018-01-12] MEDS: PANTOPRAZOLE (EC) 40 MG TAB PO (05:25)
[2018-01-12 05:57] LABS: ADD MAN DIFF? NO
[2018-01-12 06:04] LABS: WHITE BLOOD COUNT 5.9 10^3/ul (4.8-10.8)
[2018-01-12 06:04] LABS: BASOPHIL # 0.1 10^3/ul (0.0-0.1); BASOPHILS % 0.8 % (0.0-2.0); EOSINOPHILS # 0.2 10^3/ul (0.0-0.5); HEMATOCRIT 23.8 % (37.0-47.0); HEMOGLOBIN 7.7 g/dl (12.0-16.0); LYMPHOCYTES # 1.1 10^3/ul (0.8-2.9); MEAN CORPUSCULAR HEMOGLOBIN 29.4 pg (29.0-33.0); MEAN CORPUSCULAR HGB CONC 32.4 g/dl (32.0-37.0); MEAN CORPUSCULAR VOLUME 90.8 fl (82.0-101.0); MONOCYTE # 0.4 10^3/ul (0.3-0.9); MONOCYTES % 7.2 % (0.0-11.0); NEUTROPHIL # 4.1 10^3/ul (1.6-7.5); NEUTROPHILS % 69.7 % (39.0-77.0); PLATELET COUNT 640 10^3/UL (140-415); RED BLOOD COUNT 2.62 10^6/ul (4.20-5.40); RED CELL DISTRIBUTION WIDTH 17.5 % (11.5-14.5)
[2018-01-12 06:24] LABS: ALBUMIN 1.9 g/dl (3.3-4.9); BLOOD UREA NITROGEN 9 mg/dl (7-20); CALCIUM 7.9 mg/dl (8.4-10.2); CARBON DIOXIDE 27 mmol/L (21-31); CHLORIDE 110 mmol/L (97-110); CREATININE 0.52 mg/dl (0.44-1.00); GLUCOSE 119 mg/dl (70-220); MAGNESIUM 1.9 mg/dl (1.7-2.5); PHOSPHORUS 2.4 mg/dl (2.5-4.9); SODIUM 140 mmol/L (135-144)
[2018-01-12 06:43] LABS: ANION GAP 7 (8-16); POTASSIUM 3.9 mmol/L (3.5-5.1)
[2018-01-12] MEDS: HYDROCODONE/APAP (5/325) TAB PO ×2 (08:00→18:31)
[2018-01-12] MEDS: INSULIN ASPART [NOVOLOG] 3 ML PEN SC ×7 (08:00→20:45)
[2018-01-12] MEDS: SUCRALFATE (100 MG/ML) 10ML CUP PO ×4 (10:02→20:43)
[2018-01-12] MEDS: FERROUS SULFATE (EC) 325 MG TAB PO (10:02)
[2018-01-12] MEDS: NEUTRA-PHOS 250 MG PACKET PO (10:03)
[2018-01-12] MEDS: FUROSEMIDE 40 MG TAB PO (10:03)
[2018-01-12] MEDS: MAGNESIUM OXIDE 400 MG TAB PO ×2 (10:03→20:40)
[2018-01-12] MEDS: MEGESTROL 40 MG TAB PO ×4 (10:03→20:43)
[2018-01-12] MEDS: morphine (ER) 15 MG TAB PO ×2 (10:03→20:41)
[2018-01-12] MEDS: IMATINIB 400 MG TAB PO (10:05)
[2018-01-12] MEDS: METOPROLOL (XL) 25 MG TAB PO (10:07)
[2018-01-12] MEDS: SPIRONOLACTONE 50 MG TAB PO (11:43)
[2018-01-12] MEDS: SOD FERRIC GLUC COMPLX 125 MG in SOD CHLORIDE 0.9% 100 ML IVPB (16:56)
[2018-01-12] MEDS: ATORVASTATIN 20 MG TAB PO (20:40)
[2018-01-12] MEDS: INSULIN GLARGINE [LANtus] 3 ML PEN SC (20:46)
[2018-01-13] MEDS: HYDROCODONE/APAP (5/325) TAB PO ×3 (01:18→19:37)
[2018-01-13] MEDS: ACCUCHECK AT 2AM (Patients on SS coverage) XX (02:00)
[2018-01-13 05:26] LABS: ADD MAN DIFF? NO
[2018-01-13 05:35] LABS: WHITE BLOOD COUNT 5.6 10^3/ul (4.8-10.8)
[2018-01-13 05:35] LABS: BASOPHILS % 0.7 % (0.0-2.0); EOSINOPHILS # 0.1 10^3/ul (0.0-0.5); EOSINOPHILS % 1.6 % (0.0-7.0); HEMATOCRIT 21.6 % (37.0-47.0); LYMPHOCYTES % 18.6 % (15.0-51.0); MEAN CORPUSCULAR HEMOGLOBIN 29.3 pg (29.0-33.0); MEAN CORPUSCULAR HGB CONC 32.4 g/dl (32.0-37.0); MEAN CORPUSCULAR VOLUME 90.4 fl (82.0-101.0); MEAN PLATELET VOLUME 8.8 fl (7.4-10.4); MONOCYTE # 0.5 10^3/ul (0.3-0.9); MONOCYTES % 8.1 % (0.0-11.0); NEUTROPHIL # 3.9 10^3/ul (1.6-7.5); NEUTROPHILS % 70.1 % (39.0-77.0); PLATELET COUNT 589 10^3/UL (140-415); RED BLOOD COUNT 2.39 10^6/ul (4.20-5.40); RED CELL DISTRIBUTION WIDTH 18.1 % (11.5-14.5)
[2018-01-13] MEDS: PANTOPRAZOLE (EC) 40 MG TAB PO (05:41)
[2018-01-13] MEDS: FUROSEMIDE 40 MG TAB PO ×2 (05:49→17:35)
[2018-01-13] MEDS: SPIRONOLACTONE 50 MG TAB PO (05:49)
[2018-01-13 05:56] LABS: ALBUMIN 2.1 g/dl (3.3-4.9); ANION GAP 9 (8-16); BLOOD UREA NITROGEN 8 mg/dl (7-20); CALCIUM 7.6 mg/dl (8.4-10.2); CARBON DIOXIDE 27 mmol/L (21-31); CHLORIDE 107 mmol/L (97-110); CREATININE 0.59 mg/dl (0.44-1.00); GLUCOSE 142 mg/dl (70-220); MAGNESIUM 1.7 mg/dl (1.7-2.5); PHOSPHORUS 3.2 mg/dl (2.5-4.9); POTASSIUM 3.3 mmol/L (3.5-5.1); SODIUM 140 mmol/L (135-144)
[2018-01-13] MEDS: INSULIN ASPART [NOVOLOG] 3 ML PEN SC ×7 (08:16→20:17)
[2018-01-13] MEDS: IMATINIB 400 MG TAB PO (08:17)
[2018-01-13] MEDS: MAGNESIUM OXIDE 400 MG TAB PO ×2 (08:18→20:21)
[2018-01-13] MEDS: SUCRALFATE (100 MG/ML) 10ML CUP PO ×4 (08:18→20:21)
[2018-01-13] MEDS: METOPROLOL (XL) 25 MG TAB PO (08:18)
[2018-01-13] MEDS: morphine (ER) 15 MG TAB PO ×3 (08:18→21:38)
[2018-01-13] MEDS: FERROUS SULFATE (EC) 325 MG TAB PO (08:18)
[2018-01-13] MEDS: MEGESTROL 40 MG TAB PO ×4 (08:18→20:21)
[2018-01-13] MEDS: POTASSIUM CHLORIDE (SR) 20 MEQ TAB PO ×3 (09:36→13:31)
[2018-01-13] MEDS: SOD FERRIC GLUC COMPLX 125 MG in SOD CHLORIDE 0.9% 100 ML IVPB (18:00)
[2018-01-13] MEDS: ATORVASTATIN 20 MG TAB PO (20:21)
[2018-01-13] MEDS: INSULIN GLARGINE [LANtus] 3 ML PEN SC (20:24)
[2018-01-14] MEDS: PANTOPRAZOLE (EC) 40 MG TAB PO (05:15)
[2018-01-14] MEDS: FUROSEMIDE 40 MG TAB PO ×2 (05:15→17:30)
[2018-01-14] MEDS: SPIRONOLACTONE 50 MG TAB PO (05:16)
[2018-01-14 05:28] LABS: ADD MAN DIFF? NO
[2018-01-14 05:41] LABS: BASOPHILS % 0.8 % (0.0-2.0); EOSINOPHILS # 0.1 10^3/ul (0.0-0.5); EOSINOPHILS % 1.6 % (0.0-7.0); LYMPHOCYTES % 20.3 % (15.0-51.0); MEAN CORPUSCULAR HEMOGLOBIN 29.4 pg (29.0-33.0); MEAN CORPUSCULAR HGB CONC 31.8 g/dl (32.0-37.0); MEAN CORPUSCULAR VOLUME 92.4 fl (82.0-101.0); MEAN PLATELET VOLUME 8.7 fl (7.4-10.4); MONOCYTE # 0.4 10^3/ul (0.3-0.9); MONOCYTES % 8.3 % (0.0-11.0); NEUTROPHIL # 3.5 10^3/ul (1.6-7.5); NEUTROPHILS % 68.4 % (39.0-77.0); PLATELET COUNT 626 10^3/UL (140-415); RED BLOOD COUNT 2.38 10^6/ul (4.20-5.40); RED CELL DISTRIBUTION WIDTH 18.8 % (11.5-14.5)
[2018-01-14 05:41] LABS: WHITE BLOOD COUNT 5.1 10^3/ul (4.8-10.8)
[2018-01-14] MEDS: morphine (ER) 15 MG TAB PO ×2 (08:08→20:42)
[2018-01-14] MEDS: MEGESTROL 40 MG TAB PO ×4 (08:08→20:41)
[2018-01-14] MEDS: MAGNESIUM OXIDE 400 MG TAB PO ×2 (08:08→20:41)
[2018-01-14] MEDS: FERROUS SULFATE (EC) 325 MG TAB PO (08:08)
[2018-01-14] MEDS: IMATINIB 400 MG TAB PO (08:10)
[2018-01-14] MEDS: INSULIN ASPART [NOVOLOG] 3 ML PEN SC ×7 (08:12→20:46)
[2018-01-14] MEDS: SUCRALFATE (100 MG/ML) 10ML CUP PO ×4 (08:17→20:50)
[2018-01-14] MEDS: METOPROLOL (XL) 25 MG TAB PO (08:18)
[2018-01-14] MEDS: POTASSIUM CHLORIDE (SR) 20 MEQ TAB PO (08:24)
[2018-01-14 09:20] LABS: ALBUMIN 1.9 g/dl (3.3-4.9); ANION GAP 7 (8-16); BLOOD UREA NITROGEN 9 mg/dl (7-20); CALCIUM 7.6 mg/dl (8.4-10.2); CARBON DIOXIDE 26 mmol/L (21-31); CHLORIDE 109 mmol/L (97-110); CREATININE 0.57 mg/dl (0.44-1.00); GLUCOSE 145 mg/dl (70-220); POTASSIUM 5.2 mmol/L (3.5-5.1); SODIUM 137 mmol/L (135-144)
[2018-01-14] MEDS: HYDROCODONE/APAP (5/325) TAB PO (12:23)
[2018-01-14 12:55] LABS: PROTIME 14.4 Sec (11.9-14.9); PT RATIO 1.1
[2018-01-14] MEDS ORDERED: LIDOCAINE 1% (MDV) 10 ML INJ (15:41)
[2018-01-14] MEDS ORDERED: DICYCLOMINE 10 MG CAP PO (16:00)
[2018-01-14 16:18] LABS: FLD MN% 81.2 %; FLD PMN% 18.8 %; FLD WBC 1022 /cmm
[2018-01-14 16:23] LABS: FLD COLOR RED
[2018-01-14 16:24] LABS: FLD TYPE PARACENTESIS FLUID
[2018-01-14 16:25] LABS: TOTAL PROTEIN 2.8 g/dl (6.1-8.1)
[2018-01-14 16:25] LABS: FLD CLARITY BLOODY; FLUID GLUCOSE 173 mg/dl; FLUID LD 418 U/L; FLUID TYPE PARACENTESIS FLUID
[2018-01-14 16:26] LABS: FLUID TOTAL PROTEIN 2.8 g/dl; FLUID TYPE PARACENTESIS FLUID
[2018-01-14] MEDS: SOD FERRIC GLUC COMPLX 125 MG in SOD CHLORIDE 0.9% 100 ML IVPB (17:30)
[2018-01-14] MEDS: ATORVASTATIN 20 MG TAB PO (20:41)
[2018-01-14] MEDS: INSULIN GLARGINE [LANtus] 3 ML PEN SC (20:43)
[2018-01-15] MEDS: FUROSEMIDE 40 MG TAB PO ×2 (05:53→17:22)
[2018-01-15] MEDS: SPIRONOLACTONE 50 MG TAB PO (05:53)
[2018-01-15] MEDS: PANTOPRAZOLE (EC) 40 MG TAB PO (05:53)
[2018-01-15 05:58] LABS: ADD MAN DIFF? NO
[2018-01-15 06:09] LABS: ABNORMAL IP MESSAGE 1; BASOPHILS % 0.5 % (0.0-2.0); EOSINOPHILS # 0.1 10^3/ul (0.0-0.5); EOSINOPHILS % 1.1 % (0.0-7.0); HEMATOCRIT 20.8 % (37.0-47.0); LYMPHOCYTES # 1.1 10^3/ul (0.8-2.9); LYMPHOCYTES % 20.9 % (15.0-51.0); MEAN CORPUSCULAR HEMOGLOBIN 29.8 pg (29.0-33.0); MEAN CORPUSCULAR HGB CONC 32.2 g/dl (32.0-37.0); MEAN CORPUSCULAR VOLUME 92.4 fl (82.0-101.0); MEAN PLATELET VOLUME 8.8 fl (7.4-10.4); MONOCYTE # 0.4 10^3/ul (0.3-0.9); MONOCYTES % 7.9 % (0.0-11.0); NEUTROPHIL # 3.8 10^3/ul (1.6-7.5); NEUTROPHILS % 69.2 % (39.0-77.0); PLATELET COUNT 583 10^3/UL (140-415); RED BLOOD COUNT 2.25 10^6/ul (4.20-5.40); RED CELL DISTRIBUTION WIDTH 19.9 % (11.5-14.5)
[2018-01-15 06:09] LABS: WHITE BLOOD COUNT 5.5 10^3/ul (4.8-10.8)
[2018-01-15 06:21] LABS: HEMOGLOBIN 6.7 g/dl (12.0-16.0); POSITIVE DIFF @See below
[2018-01-15 06:35] LABS: ALBUMIN 1.9 g/dl (3.3-4.9); ANION GAP 8 (8-16); BLOOD UREA NITROGEN 10 mg/dl (7-20); CALCIUM 7.8 mg/dl (8.4-10.2); CARBON DIOXIDE 27 mmol/L (21-31); CHLORIDE 108 mmol/L (97-110); CREATININE 0.61 mg/dl (0.44-1.00); GLUCOSE 156 mg/dl (70-220); PHOSPHORUS 2.7 mg/dl (2.5-4.9); POTASSIUM 4.3 mmol/L (3.5-5.1); SODIUM 139 mmol/L (135-144)
[2018-01-15] MEDS: INSULIN ASPART [NOVOLOG] 3 ML PEN SC ×7 (07:59→20:52)
[2018-01-15] MEDS: IMATINIB 400 MG TAB PO (08:26)
[2018-01-15] MEDS: morphine (ER) 15 MG TAB PO ×2 (08:27→20:46)
[2018-01-15] MEDS: METOPROLOL (XL) 25 MG TAB PO (08:27)
[2018-01-15] MEDS: FERROUS SULFATE (EC) 325 MG TAB PO (08:27)
[2018-01-15] MEDS: POTASSIUM CHLORIDE (SR) 20 MEQ TAB PO (08:27)
[2018-01-15] MEDS: MEGESTROL 40 MG TAB PO ×4 (08:27→20:45)
[2018-01-15] MEDS: MAGNESIUM OXIDE 400 MG TAB PO ×2 (08:27→20:45)
[2018-01-15] MEDS: SUCRALFATE (100 MG/ML) 10ML CUP PO ×4 (08:28→20:45)
[2018-01-15 10:57] LABS: IMMEDIATE SPIN CROSSMATCH 1 2
[2018-01-15] MEDS: HYDROCODONE/APAP (5/325) TAB PO (17:23)
[2018-01-15] MEDS: ATORVASTATIN 20 MG TAB PO (20:45)
[2018-01-15] MEDS: INSULIN GLARGINE [LANtus] 3 ML PEN SC (20:53)
[2018-01-16] MEDS: SPIRONOLACTONE 50 MG TAB PO ×2 (05:28→12:19)
[2018-01-16] MEDS: PANTOPRAZOLE (EC) 40 MG TAB PO (05:28)
[2018-01-16] MEDS: FUROSEMIDE 40 MG TAB PO ×2 (05:28→17:20)
[2018-01-16 06:46] LABS: ADD MAN DIFF? NO
[2018-01-16 06:58] LABS: WHITE BLOOD COUNT 8.3 10^3/ul (4.8-10.8)
[2018-01-16 06:58] LABS: BASOPHILS % 0.4 % (0.0-2.0); EOSINOPHILS # 0.1 10^3/ul (0.0-0.5); EOSINOPHILS % 0.8 % (0.0-7.0); LYMPHOCYTES # 1.3 10^3/ul (0.8-2.9); LYMPHOCYTES % 15.1 % (15.0-51.0); MEAN CORPUSCULAR HEMOGLOBIN 30.6 pg (29.0-33.0); MEAN CORPUSCULAR HGB CONC 33.3 g/dl (32.0-37.0); MEAN CORPUSCULAR VOLUME 91.7 fl (82.0-101.0); MEAN PLATELET VOLUME 8.5 fl (7.4-10.4); MONOCYTE # 0.6 10^3/ul (0.3-0.9); MONOCYTES % 6.8 % (0.0-11.0); NEUTROPHIL # 6.3 10^3/ul (1.6-7.5); NEUTROPHILS % 76.4 % (39.0-77.0); PLATELET COUNT 607 10^3/UL (140-415); RED BLOOD COUNT 3.27 10^6/ul (4.20-5.40); RED CELL DISTRIBUTION WIDTH 19.1 % (11.5-14.5)
[2018-01-16 07:13] LABS: ALBUMIN 2.3 g/dl (3.3-4.9); ANION GAP 10 (8-16); ANION GAP 12 (8-16); BLOOD UREA NITROGEN 12 mg/dl (7-20); CALCIUM 8.1 mg/dl (8.4-10.2); CARBON DIOXIDE 24 mmol/L (21-31); CARBON DIOXIDE 26 mmol/L (21-31); CHLORIDE 106 mmol/L (97-110); CHLORIDE 107 mmol/L (97-110); CREATININE 0.63 mg/dl (0.44-1.00); CREATININE 0.64 mg/dl (0.44-1.00); GLUCOSE 142 mg/dl (70-220); GLUCOSE 145 mg/dl (70-220); MAGNESIUM 1.6 mg/dl (1.7-2.5); PHOSPHORUS 3.1 mg/dl (2.5-4.9); PHOSPHORUS 3.4 mg/dl (2.5-4.9); POTASSIUM 3.7 mmol/L (3.5-5.1); SODIUM 138 mmol/L (135-144); SODIUM 139 mmol/L (135-144)
[2018-01-16] MEDS: morphine (ER) 15 MG TAB PO ×2 (08:08→21:55)
[2018-01-16] MEDS: INSULIN ASPART [NOVOLOG] 3 ML PEN SC ×7 (08:20→21:54)
[2018-01-16] MEDS: SUCRALFATE (100 MG/ML) 10ML CUP PO ×4 (08:32→21:55)
[2018-01-16] MEDS: FERROUS SULFATE (EC) 325 MG TAB PO (08:32)
[2018-01-16] MEDS: MAGNESIUM OXIDE 400 MG TAB PO ×3 (08:32→21:54)
[2018-01-16] MEDS: IMATINIB 400 MG TAB PO (08:32)
[2018-01-16] MEDS: POTASSIUM CHLORIDE (SR) 20 MEQ TAB PO (08:33)
[2018-01-16] MEDS: MEGESTROL 40 MG TAB PO ×4 (08:33→21:54)
[2018-01-16] MEDS: METOPROLOL (XL) 25 MG TAB PO (08:34)
[2018-01-16] MEDS: HYDROCODONE/APAP (5/325) TAB PO ×3 (09:41→23:29)
[2018-01-16] MEDS: INSULIN GLARGINE [LANtus] 3 ML PEN SC (21:53)
[2018-01-16] MEDS: ATORVASTATIN 20 MG TAB PO (21:55)
[2018-01-17] MEDS: PANTOPRAZOLE (EC) 40 MG TAB PO (05:53)
[2018-01-17] MEDS: SPIRONOLACTONE 50 MG TAB PO (05:56)
[2018-01-17] MEDS: FUROSEMIDE 40 MG TAB PO ×2 (05:56→21:45)
[2018-01-17 06:57] LABS: ADD MAN DIFF? NO
[2018-01-17 07:08] LABS: BASOPHILS % 0.4 % (0.0-2.0); EOSINOPHILS # 0.1 10^3/ul (0.0-0.5); EOSINOPHILS % 0.9 % (0.0-7.0); HEMATOCRIT 23.6 % (37.0-47.0); HEMOGLOBIN 7.6 g/dl (12.0-16.0); LYMPHOCYTES # 1.1 10^3/ul (0.8-2.9); LYMPHOCYTES % 14.6 % (15.0-51.0); MEAN CORPUSCULAR HEMOGLOBIN 30.8 pg (29.0-33.0); MEAN CORPUSCULAR HGB CONC 32.2 g/dl (32.0-37.0); MEAN CORPUSCULAR VOLUME 95.5 fl (82.0-101.0); MEAN PLATELET VOLUME 8.9 fl (7.4-10.4); MONOCYTE # 0.6 10^3/ul (0.3-0.9); MONOCYTES % 8.1 % (0.0-11.0); NEUTROPHIL # 5.6 10^3/ul (1.6-7.5); NEUTROPHILS % 75.6 % (39.0-77.0); PLATELET COUNT 522 10^3/UL (140-415); RED BLOOD COUNT 2.47 10^6/ul (4.20-5.40); RED CELL DISTRIBUTION WIDTH 19.5 % (11.5-14.5)
[2018-01-17 07:08] LABS: WHITE BLOOD COUNT 7.4 10^3/ul (4.8-10.8)
[2018-01-17 07:19] LABS: ANION GAP 9 (8-16); BLOOD UREA NITROGEN 14 mg/dl (7-20); CALCIUM 7.9 mg/dl (8.4-10.2); CARBON DIOXIDE 28 mmol/L (21-31); CHLORIDE 107 mmol/L (97-110); CREATININE 0.59 mg/dl (0.44-1.00); GLUCOSE 128 mg/dl (70-220); PHOSPHORUS 3.3 mg/dl (2.5-4.9); POTASSIUM 4.8 mmol/L (3.5-5.1); SODIUM 139 mmol/L (135-144)
[2018-01-17] MEDS: INSULIN ASPART [NOVOLOG] 3 ML PEN SC ×7 (08:16→21:56)
[2018-01-17] MEDS: SUCRALFATE (100 MG/ML) 10ML CUP PO ×4 (08:16→21:46)
[2018-01-17] MEDS: METOPROLOL (XL) 25 MG TAB PO (08:17)
[2018-01-17] MEDS: MAGNESIUM OXIDE 400 MG TAB PO ×2 (08:17→21:44)
[2018-01-17] MEDS: IMATINIB 400 MG TAB PO (08:17)
[2018-01-17] MEDS: MEGESTROL 40 MG TAB PO ×4 (08:18→21:44)
[2018-01-17] MEDS: POTASSIUM CHLORIDE (SR) 20 MEQ TAB PO (08:18)
[2018-01-17] MEDS: morphine (ER) 15 MG TAB PO (08:23)
[2018-01-17 08:26] LABS: MAGNESIUM 1.8 mg/dl (1.7-2.5)
[2018-01-17 08:26] LABS: PHOSPHORUS 3.3 mg/dl (2.5-4.9)
[2018-01-17] MEDS: HYDROCODONE/APAP (5/325) TAB PO ×2 (09:03→21:44)
[2018-01-17] MEDS: FERROUS SULFATE (EC) 325 MG TAB PO (09:05)
[2018-01-17] MEDS: LIDOCAINE 1% (MPF) 5 ML VIAL SC (15:00)
[2018-01-17] MEDS ORDERED: LIDOCAINE 1% (MDV) 10 ML INJ INJ (16:00)
[2018-01-17 16:27] LABS: HAPTOGLOBIN 351 mg/dL (43-212)
[2018-01-17 20:48] LABS: HEMOGLOBIN 6.6 g/dl (12.0-16.0)
[2018-01-17] MEDS: INSULIN GLARGINE [LANtus] 3 ML PEN SC (20:56)
[2018-01-17] MEDS: ATORVASTATIN 20 MG TAB PO (21:44)
[2018-01-18] MEDS: SPIRONOLACTONE 50 MG TAB PO (05:35)
[2018-01-18] MEDS: PANTOPRAZOLE (EC) 40 MG TAB PO (05:35)
[2018-01-18] MEDS: FUROSEMIDE 40 MG TAB PO ×2 (05:36→17:21)
[2018-01-18 07:06] LABS: ADD MAN DIFF? NO
[2018-01-18 07:17] LABS: WHITE BLOOD COUNT 4.3 10^3/ul (4.8-10.8)
[2018-01-18 07:17] LABS: BASOPHILS % 0.2 % (0.0-2.0); EOSINOPHILS % 0.5 % (0.0-7.0); HEMATOCRIT 35.2 % (37.0-47.0); HEMOGLOBIN 11.4 g/dl (12.0-16.0); LYMPHOCYTES # 0.8 10^3/ul (0.8-2.9); MEAN CORPUSCULAR HEMOGLOBIN 29.6 pg (29.0-33.0); MEAN CORPUSCULAR HGB CONC 32.4 g/dl (32.0-37.0); MEAN CORPUSCULAR VOLUME 91.4 fl (82.0-101.0); MEAN PLATELET VOLUME 8.8 fl (7.4-10.4); MONOCYTE # 0.3 10^3/ul (0.3-0.9); MONOCYTES % 7.5 % (0.0-11.0); NEUTROPHIL # 3.2 10^3/ul (1.6-7.5); NEUTROPHILS % 73.6 % (39.0-77.0); PLATELET COUNT 308 10^3/UL (140-415); RED BLOOD COUNT 3.85 10^6/ul (4.20-5.40); RED CELL DISTRIBUTION WIDTH 19.1 % (11.5-14.5)
[2018-01-18 07:38] LABS: ANION GAP 13 (8-16); BLOOD UREA NITROGEN 11 mg/dl (7-20); CALCIUM 7.8 mg/dl (8.4-10.2); CARBON DIOXIDE 24 mmol/L (21-31); CHLORIDE 105 mmol/L (97-110); CREATININE 0.63 mg/dl (0.44-1.00); GLUCOSE 194 mg/dl (70-220); MAGNESIUM 1.8 mg/dl (1.7-2.5); SODIUM 138 mmol/L (135-144)
[2018-01-18] MEDS: INSULIN ASPART [NOVOLOG] 3 ML PEN SC ×7 (09:02→20:46)
[2018-01-18] MEDS: POTASSIUM CHLORIDE (SR) 20 MEQ TAB PO (09:03)
[2018-01-18] MEDS: SUCRALFATE (100 MG/ML) 10ML CUP PO ×4 (09:03→20:48)
[2018-01-18] MEDS: MEGESTROL 40 MG TAB PO ×4 (09:04→22:08)
[2018-01-18] MEDS: MAGNESIUM OXIDE 400 MG TAB PO ×2 (09:04→20:47)
[2018-01-18] MEDS: FERROUS SULFATE (EC) 325 MG TAB PO (09:04)
[2018-01-18] MEDS: METOPROLOL (XL) 25 MG TAB PO (09:07)
[2018-01-18] MEDS: IMATINIB 400 MG TAB PO (09:08)
[2018-01-18] MEDS: HYDROCODONE/APAP (5/325) TAB PO ×3 (10:31→23:32)
[2018-01-18] MEDS: INSULIN GLARGINE [LANtus] 3 ML PEN SC (20:44)
[2018-01-18] MEDS: ATORVASTATIN 20 MG TAB PO (20:47)
[2018-01-19] MEDS: SPIRONOLACTONE 50 MG TAB PO (05:39)
[2018-01-19] MEDS: PANTOPRAZOLE (EC) 40 MG TAB PO (05:39)
[2018-01-19 05:40] LABS: ADD MAN DIFF? NO
[2018-01-19] MEDS: FUROSEMIDE 40 MG TAB PO ×2 (05:40→17:23)
[2018-01-19 05:42] LABS: BASOPHILS % 0.4 % (0.0-2.0); EOSINOPHILS # 0.1 10^3/ul (0.0-0.5); EOSINOPHILS % 1.1 % (0.0-7.0); HEMATOCRIT 22.1 % (37.0-47.0); HEMOGLOBIN 7.2 g/dl (12.0-16.0); LYMPHOCYTES # 0.9 10^3/ul (0.8-2.9); LYMPHOCYTES % 16.2 % (15.0-51.0); MEAN CORPUSCULAR HEMOGLOBIN 30.8 pg (29.0-33.0); MEAN CORPUSCULAR HGB CONC 32.6 g/dl (32.0-37.0); MEAN CORPUSCULAR VOLUME 94.4 fl (82.0-101.0); MEAN PLATELET VOLUME 8.9 fl (7.4-10.4); MONOCYTE # 0.5 10^3/ul (0.3-0.9); MONOCYTES % 10.1 % (0.0-11.0); NEUTROPHIL # 3.9 10^3/ul (1.6-7.5); NEUTROPHILS % 71.8 % (39.0-77.0); PLATELET COUNT 365 10^3/UL (140-415); RED BLOOD COUNT 2.34 10^6/ul (4.20-5.40); RED CELL DISTRIBUTION WIDTH 18.9 % (11.5-14.5)
[2018-01-19 05:42] LABS: WHITE BLOOD COUNT 5.4 10^3/ul (4.8-10.8)
[2018-01-19] MEDS: HYDROCODONE/APAP (5/325) TAB PO ×3 (05:46→18:22)
[2018-01-19 06:01] LABS: ANION GAP 11 (8-16); BLOOD UREA NITROGEN 11 mg/dl (7-20); CALCIUM 7.9 mg/dl (8.4-10.2); CARBON DIOXIDE 25 mmol/L (21-31); CHLORIDE 105 mmol/L (97-110); CREATININE 0.63 mg/dl (0.44-1.00); GLUCOSE 134 mg/dl (70-220); POTASSIUM 4.2 mmol/L (3.5-5.1); SODIUM 137 mmol/L (135-144)
[2018-01-19] MEDS: FERROUS SULFATE (EC) 325 MG TAB PO (08:05)
[2018-01-19] MEDS: SUCRALFATE (100 MG/ML) 10ML CUP PO ×4 (08:05→21:01)
[2018-01-19] MEDS: MEGESTROL 40 MG TAB PO ×4 (08:05→21:01)
[2018-01-19] MEDS: POTASSIUM CHLORIDE (SR) 20 MEQ TAB PO (08:06)
[2018-01-19] MEDS: MAGNESIUM OXIDE 400 MG TAB PO ×2 (08:06→21:01)
[2018-01-19] MEDS: METOPROLOL (XL) 25 MG TAB PO (08:06)
[2018-01-19] MEDS: IMATINIB 400 MG TAB PO (08:07)
[2018-01-19] MEDS: INSULIN ASPART [NOVOLOG] 3 ML PEN SC ×7 (08:08→21:04)
[2018-01-19] MEDS ORDERED: BISACODYL (EC) 5 MG TAB PO (14:30)
[2018-01-19] MEDS ORDERED: GLUCOSE GEL 15 GRAM TUBE BUCCAL (14:30)
[2018-01-19] MEDS ORDERED: DEXTROSE 50% 50 ML SYRINGE IV ×2 (14:30)
[2018-01-19] MEDS ORDERED: (Nursing Note) XX (14:30)
[2018-01-19] MEDS ORDERED: GLUCAGON 1 MG INJ IM (14:30)
[2018-01-19] MEDS ORDERED: MAGNESIUM HYDROXIDE 30ML CUP PO (14:30)
[2018-01-19] MEDS ORDERED: GLUCOSE GEL 15 GRAM TUBE PO ×2 (14:30)
[2018-01-19] MEDS ORDERED: DOCUSATE SODIUM 100 MG CAP PO (16:30)
[2018-01-19] MEDS ORDERED: hydrALAzine 20 MG INJ IV (16:30)
[2018-01-19] MEDS ORDERED: ONDANSETRON 4 MG INJ IV (16:30)
[2018-01-19] MEDS: ATORVASTATIN 20 MG TAB PO (21:01)
[2018-01-19] MEDS: INSULIN GLARGINE [LANtus] 3 ML PEN SC (21:03)
[2018-01-19 21:56] LABS: IMMEDIATE SPIN CROSSMATCH 1 2
[2018-01-20] MEDS: HYDROCODONE/APAP (5/325) TAB PO ×3 (00:30→14:40)
[2018-01-20] MEDS: SPIRONOLACTONE 50 MG TAB PO (05:25)
[2018-01-20] MEDS: FUROSEMIDE 40 MG TAB PO ×2 (05:25→17:22)
[2018-01-20] MEDS: PANTOPRAZOLE (EC) 40 MG TAB PO (05:25)
[2018-01-20 06:19] LABS: ADD MAN DIFF? NO
[2018-01-20 06:24] LABS: BASOPHILS % 0.6 % (0.0-2.0); EOSINOPHILS % 0.4 % (0.0-7.0); HEMATOCRIT 23.4 % (37.0-47.0); HEMOGLOBIN 7.7 g/dl (12.0-16.0); LYMPHOCYTES % 19.2 % (15.0-51.0); MEAN CORPUSCULAR HGB CONC 32.9 g/dl (32.0-37.0); MEAN CORPUSCULAR VOLUME 91.1 fl (82.0-101.0); MEAN PLATELET VOLUME 9.1 fl (7.4-10.4); MONOCYTE # 0.5 10^3/ul (0.3-0.9); MONOCYTES % 9.7 % (0.0-11.0); NEUTROPHIL # 3.5 10^3/ul (1.6-7.5); NEUTROPHILS % 69.7 % (39.0-77.0); PLATELET COUNT 323 10^3/UL (140-415); RED BLOOD COUNT 2.57 10^6/ul (4.20-5.40); RED CELL DISTRIBUTION WIDTH 17.6 % (11.5-14.5)
[2018-01-20 06:45] LABS: ALBUMIN 2.2 g/dl (3.3-4.9); ANION GAP 5 (8-16); BLOOD UREA NITROGEN 12 mg/dl (7-20); CALCIUM 8.1 mg/dl (8.4-10.2); CARBON DIOXIDE 25 mmol/L (21-31); CHLORIDE 107 mmol/L (97-110); CREATININE 0.62 mg/dl (0.44-1.00); GLUCOSE 120 mg/dl (70-220); POTASSIUM 4.2 mmol/L (3.5-5.1); SODIUM 133 mmol/L (135-144)
[2018-01-20 06:48] LABS: INR 1.21; PROTIME 15.5 Sec (11.9-14.9); PT RATIO 1.2
[2018-01-20 06:49] LABS: PARTIAL THROMBOPLASTIN TIME 36.7 Sec (25.0-35.0)
[2018-01-20] MEDS: INSULIN ASPART [NOVOLOG] 3 ML PEN SC ×7 (07:47→20:17)
[2018-01-20] MEDS: POTASSIUM CHLORIDE (SR) 20 MEQ TAB PO (08:03)
[2018-01-20] MEDS: MEGESTROL 40 MG TAB PO ×4 (08:03→20:28)
[2018-01-20] MEDS: MAGNESIUM OXIDE 400 MG TAB PO ×2 (08:03→20:28)
[2018-01-20] MEDS: SUCRALFATE (100 MG/ML) 10ML CUP PO ×4 (08:03→20:28)
[2018-01-20] MEDS: FERROUS SULFATE (EC) 325 MG TAB PO (08:03)
[2018-01-20] MEDS: METOPROLOL (XL) 25 MG TAB PO (08:04)
[2018-01-20] MEDS: IMATINIB 400 MG TAB PO (08:04)
[2018-01-20] MEDS: INSULIN GLARGINE [LANtus] 3 ML PEN SC (20:27)
[2018-01-20] MEDS: ATORVASTATIN 20 MG TAB PO (20:28)
[2018-01-21] MEDS: SPIRONOLACTONE 50 MG TAB PO (05:09)
[2018-01-21] MEDS: PANTOPRAZOLE (EC) 40 MG TAB PO (05:10)
[2018-01-21] MEDS: FUROSEMIDE 40 MG TAB PO ×2 (05:10→17:23)
[2018-01-21 06:09] LABS: ADD MAN DIFF? NO
[2018-01-21 06:25] LABS: WHITE BLOOD COUNT 3.9 10^3/ul (4.8-10.8)
[2018-01-21 06:25] LABS: BASOPHILS % 0.5 % (0.0-2.0); EOSINOPHILS % 0.5 % (0.0-7.0); HEMATOCRIT 22.2 % (37.0-47.0); HEMOGLOBIN 7.1 g/dl (12.0-16.0); LYMPHOCYTES # 0.8 10^3/ul (0.8-2.9); LYMPHOCYTES % 19.9 % (15.0-51.0); MEAN CORPUSCULAR HEMOGLOBIN 30.2 pg (29.0-33.0); MEAN CORPUSCULAR VOLUME 94.5 fl (82.0-101.0); MEAN PLATELET VOLUME 9.1 fl (7.4-10.4); MONOCYTE # 0.4 10^3/ul (0.3-0.9); MONOCYTES % 10.6 % (0.0-11.0); NEUTROPHIL # 2.6 10^3/ul (1.6-7.5); NEUTROPHILS % 68.2 % (39.0-77.0); PLATELET COUNT 324 10^3/UL (140-415); RED BLOOD COUNT 2.35 10^6/ul (4.20-5.40); RED CELL DISTRIBUTION WIDTH 18.5 % (11.5-14.5); RETICULOCYTE COUNT # 0.166 X10^6 (0.020-0.110); RETICULOCYTE COUNT % 7.1 % (0.5-1.5); RETICULOCYTE RBC 2.35
[2018-01-21] MEDS: SUCRALFATE (100 MG/ML) 10ML CUP PO ×4 (08:14→20:33)
[2018-01-21] MEDS: HYDROCODONE/APAP (5/325) TAB PO ×3 (08:14→22:47)
[2018-01-21] MEDS: INSULIN ASPART [NOVOLOG] 3 ML PEN SC ×7 (08:16→20:33)
[2018-01-21] MEDS: MEGESTROL 40 MG TAB PO ×5 (08:17→20:34)
[2018-01-21] MEDS: POTASSIUM CHLORIDE (SR) 20 MEQ TAB PO (08:17)
[2018-01-21] MEDS: FERROUS SULFATE (EC) 325 MG TAB PO (08:17)
[2018-01-21] MEDS: MAGNESIUM OXIDE 400 MG TAB PO ×3 (08:17→20:34)
[2018-01-21] MEDS: METOPROLOL (XL) 25 MG TAB PO (08:18)
[2018-01-21] MEDS: IMATINIB 400 MG TAB PO (08:19)
[2018-01-21] MEDS: SOD CHLORIDE 0.9% 250 ML IV* (10:42)
[2018-01-21] MEDS: INSULIN GLARGINE [LANtus] 3 ML PEN SC (20:32)
[2018-01-21] MEDS: ATORVASTATIN 20 MG TAB PO (20:34)
[2018-01-22] MEDS: SPIRONOLACTONE 50 MG TAB PO (05:22)
[2018-01-22] MEDS: PANTOPRAZOLE (EC) 40 MG TAB PO (05:22)
[2018-01-22] MEDS: FUROSEMIDE 40 MG TAB PO ×2 (05:22→17:45)
[2018-01-22 05:36] LABS: ADD MAN DIFF? NO
[2018-01-22 05:46] LABS: WHITE BLOOD COUNT 4.3 10^3/ul (4.8-10.8)
[2018-01-22 05:46] LABS: BASOPHILS % 0.7 % (0.0-2.0); EOSINOPHILS % 0.9 % (0.0-7.0); HEMATOCRIT 25.4 % (37.0-47.0); HEMOGLOBIN 8.3 g/dl (12.0-16.0); LYMPHOCYTES # 0.9 10^3/ul (0.8-2.9); LYMPHOCYTES % 21.1 % (15.0-51.0); MEAN CORPUSCULAR HEMOGLOBIN 30.3 pg (29.0-33.0); MEAN CORPUSCULAR HGB CONC 32.7 g/dl (32.0-37.0); MEAN CORPUSCULAR VOLUME 92.7 fl (82.0-101.0); MEAN PLATELET VOLUME 8.9 fl (7.4-10.4); MONOCYTE # 0.5 10^3/ul (0.3-0.9); NEUTROPHIL # 2.8 10^3/ul (1.6-7.5); NEUTROPHILS % 65.8 % (39.0-77.0); PLATELET COUNT 302 10^3/UL (140-415); RED BLOOD COUNT 2.74 10^6/ul (4.20-5.40); RED CELL DISTRIBUTION WIDTH 18.7 % (11.5-14.5)
[2018-01-22 06:02] LABS: MAGNESIUM 1.8 mg/dl (1.7-2.5)
[2018-01-22 06:05] LABS: ALANINE AMINOTRANSFERASE 31 IU/L (13-69); ALBUMIN 2.2 g/dl (3.3-4.9); ALBUMIN/GLOBULIN RATIO 0.75; ALKALINE PHOSPHATASE 104 IU/L (42-121); ANION GAP 5 (8-16); ASPARTATE AMINO TRANSFERASE 25 IU/L (15-46); BILIRUBIN,INDIRECT 0.5 mg/dl (0-1.1); BILIRUBIN,TOTAL 0.5 mg/dl (0.2-1.3); BLOOD UREA NITROGEN 14 mg/dl (7-20); CALCIUM 8.2 mg/dl (8.4-10.2); CARBON DIOXIDE 25 mmol/L (21-31); CHLORIDE 108 mmol/L (97-110); CREATININE 0.74 mg/dl (0.44-1.00); GLUCOSE 132 mg/dl (70-220); POTASSIUM 4.3 mmol/L (3.5-5.1); SODIUM 134 mmol/L (135-144); TOTAL PROTEIN 5.1 g/dl (6.1-8.1)
[2018-01-22] MEDS: POTASSIUM CHLORIDE (SR) 20 MEQ TAB PO (08:26)
[2018-01-22] MEDS: FERROUS SULFATE (EC) 325 MG TAB PO (08:26)
[2018-01-22] MEDS: SUCRALFATE (100 MG/ML) 10ML CUP PO ×4 (08:26→20:43)
[2018-01-22] MEDS: MEGESTROL 40 MG TAB PO ×4 (08:26→20:42)
[2018-01-22] MEDS: MAGNESIUM OXIDE 400 MG TAB PO ×2 (08:29→20:43)
[2018-01-22] MEDS: METOPROLOL (XL) 25 MG TAB PO (08:29)
[2018-01-22] MEDS: INSULIN ASPART [NOVOLOG] 3 ML PEN SC ×8 (08:31→20:47)
[2018-01-22] MEDS: IMATINIB 400 MG TAB PO (08:32)
[2018-01-22] MEDS: HYDROCODONE/APAP (5/325) TAB PO ×2 (12:48→22:11)
[2018-01-22] MEDS: LORAZEPAM 2 MG INJ IV (20:38)
[2018-01-22] MEDS: ATORVASTATIN 20 MG TAB PO (20:42)
[2018-01-22] MEDS: INSULIN GLARGINE [LANtus] 3 ML PEN SC (20:48)
[2018-01-23] MEDS: FUROSEMIDE 40 MG TAB PO ×2 (05:15→17:40)
[2018-01-23] MEDS: SPIRONOLACTONE 50 MG TAB PO (05:16)
[2018-01-23] MEDS: PANTOPRAZOLE (EC) 40 MG TAB PO (05:16)
[2018-01-23 05:36] LABS: ADD MAN DIFF? NO
[2018-01-23 05:39] LABS: WHITE BLOOD COUNT 5.1 10^3/ul (4.8-10.8)
[2018-01-23 05:39] LABS: BASOPHILS % 0.4 % (0.0-2.0); EOSINOPHILS # 0.1 10^3/ul (0.0-0.5); EOSINOPHILS % 1.2 % (0.0-7.0); HEMATOCRIT 25.7 % (37.0-47.0); HEMOGLOBIN 8.5 g/dl (12.0-16.0); LYMPHOCYTES # 0.9 10^3/ul (0.8-2.9); LYMPHOCYTES % 17.1 % (15.0-51.0); MEAN CORPUSCULAR HEMOGLOBIN 31.3 pg (29.0-33.0); MEAN CORPUSCULAR HGB CONC 33.1 g/dl (32.0-37.0); MEAN CORPUSCULAR VOLUME 94.5 fl (82.0-101.0); MEAN PLATELET VOLUME 8.7 fl (7.4-10.4); MONOCYTE # 0.5 10^3/ul (0.3-0.9); MONOCYTES % 10.4 % (0.0-11.0); NEUTROPHIL # 3.6 10^3/ul (1.6-7.5); NEUTROPHILS % 70.5 % (39.0-77.0); PLATELET COUNT 342 10^3/UL (140-415); RED BLOOD COUNT 2.72 10^6/ul (4.20-5.40); RED CELL DISTRIBUTION WIDTH 19.1 % (11.5-14.5)
[2018-01-23] MEDS: INSULIN ASPART [NOVOLOG] 3 ML PEN SC ×7 (08:00→20:25)
[2018-01-23] MEDS: MAGNESIUM OXIDE 400 MG TAB PO ×2 (08:22→20:22)
[2018-01-23] MEDS: SUCRALFATE (100 MG/ML) 10ML CUP PO ×4 (08:22→20:22)
[2018-01-23] MEDS: FERROUS SULFATE (EC) 325 MG TAB PO (08:22)
[2018-01-23] MEDS: POTASSIUM CHLORIDE (SR) 20 MEQ TAB PO (08:22)
[2018-01-23] MEDS: MEGESTROL 40 MG TAB PO ×4 (08:22→20:22)
[2018-01-23] MEDS: IMATINIB 400 MG TAB PO (08:23)
[2018-01-23] MEDS: METOPROLOL (XL) 25 MG TAB PO (08:24)
[2018-01-23] MEDS: HYDROCODONE/APAP (5/325) TAB PO (15:16)
[2018-01-23] MEDS: ATORVASTATIN 20 MG TAB PO (20:22)
[2018-01-23] MEDS: INSULIN GLARGINE [LANtus] 3 ML PEN SC (20:25)
[2018-01-24] MEDS: FUROSEMIDE 40 MG TAB PO ×2 (05:36→17:49)
[2018-01-24] MEDS: PANTOPRAZOLE (EC) 40 MG TAB PO (05:36)
[2018-01-24] MEDS: SPIRONOLACTONE 50 MG TAB PO (05:38)
[2018-01-24 06:47] LABS: ADD MAN DIFF? NO
[2018-01-24 06:48] LABS: BASOPHILS % 0.6 % (0.0-2.0); EOSINOPHILS # 0.1 10^3/ul (0.0-0.5); EOSINOPHILS % 1.2 % (0.0-7.0); HEMATOCRIT 24.9 % (37.0-47.0); HEMOGLOBIN 8.2 g/dl (12.0-16.0); LYMPHOCYTES # 0.9 10^3/ul (0.8-2.9); LYMPHOCYTES % 18.8 % (15.0-51.0); MEAN CORPUSCULAR HEMOGLOBIN 31.3 pg (29.0-33.0); MEAN CORPUSCULAR HGB CONC 32.9 g/dl (32.0-37.0); MEAN PLATELET VOLUME 8.8 fl (7.4-10.4); MONOCYTE # 0.5 10^3/ul (0.3-0.9); MONOCYTES % 10.4 % (0.0-11.0); NEUTROPHIL # 3.3 10^3/ul (1.6-7.5); NEUTROPHILS % 68.4 % (39.0-77.0); PLATELET COUNT 340 10^3/UL (140-415); RED BLOOD COUNT 2.62 10^6/ul (4.20-5.40); RED CELL DISTRIBUTION WIDTH 19.2 % (11.5-14.5)
[2018-01-24 06:48] LABS: WHITE BLOOD COUNT 4.8 10^3/ul (4.8-10.8)
[2018-01-24 07:22] LABS: ALBUMIN 2.5 g/dl (3.3-4.9); ANION GAP 11 (8-16); BLOOD UREA NITROGEN 15 mg/dl (7-20); CALCIUM 8.1 mg/dl (8.4-10.2); CARBON DIOXIDE 22 mmol/L (21-31); CHLORIDE 104 mmol/L (97-110); CREATININE 0.84 mg/dl (0.44-1.00); GLUCOSE 138 mg/dl (70-220); MAGNESIUM 1.8 mg/dl (1.7-2.5); PHOSPHORUS 3.4 mg/dl (2.5-4.9); POTASSIUM 4.3 mmol/L (3.5-5.1); SODIUM 133 mmol/L (135-144)
[2018-01-24] MEDS: INSULIN ASPART [NOVOLOG] 3 ML PEN SC ×7 (08:34→20:50)
[2018-01-24] MEDS: IMATINIB 400 MG TAB PO (08:35)
[2018-01-24] MEDS: SUCRALFATE (100 MG/ML) 10ML CUP PO ×4 (08:36→20:46)
[2018-01-24] MEDS: MEGESTROL 40 MG TAB PO ×4 (08:36→20:46)
[2018-01-24] MEDS: FERROUS SULFATE (EC) 325 MG TAB PO (08:37)
[2018-01-24] MEDS: MAGNESIUM OXIDE 400 MG TAB PO ×2 (08:37→20:46)
[2018-01-24] MEDS: POTASSIUM CHLORIDE (SR) 20 MEQ TAB PO (08:37)
[2018-01-24] MEDS: METOPROLOL (XL) 25 MG TAB PO (08:38)
[2018-01-24] MEDS: HYDROCODONE/APAP (5/325) TAB PO (10:52)
[2018-01-24] MEDS: ACETAMINOPHEN 325 MG TAB PO (19:51)
[2018-01-24] MEDS: ATORVASTATIN 20 MG TAB PO (20:46)
[2018-01-24] MEDS: INSULIN GLARGINE [LANtus] 3 ML PEN SC (20:49)
[2018-01-25] MEDS: INSULIN ASPART [NOVOLOG] 3 ML PEN SC ×5 (02:24→12:31)
[2018-01-25 05:53] LABS: ADD MAN DIFF? NO
[2018-01-25 05:59] LABS: WHITE BLOOD COUNT 5.8 10^3/ul (4.8-10.8)
[2018-01-25 05:59] LABS: ABNORMAL IP MESSAGE 1; BASOPHILS % 0.5 % (0.0-2.0); EOSINOPHILS # 0.1 10^3/ul (0.0-0.5); HEMATOCRIT 17.2 % (37.0-47.0); LYMPHOCYTES # 0.9 10^3/ul (0.8-2.9); LYMPHOCYTES % 16.2 % (15.0-51.0); MEAN CORPUSCULAR HEMOGLOBIN 30.7 pg (29.0-33.0); MEAN CORPUSCULAR VOLUME 96.1 fl (82.0-101.0); MEAN PLATELET VOLUME 8.9 fl (7.4-10.4); MONOCYTE # 0.6 10^3/ul (0.3-0.9); MONOCYTES % 9.8 % (0.0-11.0); NEUTROPHIL # 4.2 10^3/ul (1.6-7.5); NEUTROPHILS % 72.2 % (39.0-77.0); PLATELET COUNT 373 10^3/UL (140-415); RED BLOOD COUNT 1.79 10^6/ul (4.20-5.40); RED CELL DISTRIBUTION WIDTH 18.9 % (11.5-14.5)
[2018-01-25] MEDS: FUROSEMIDE 40 MG TAB PO (06:00)
[2018-01-25] MEDS: SPIRONOLACTONE 50 MG TAB PO (06:00)
[2018-01-25] MEDS: PANTOPRAZOLE (EC) 40 MG TAB PO (06:00)
[2018-01-25 06:12] LABS: POSITIVE DIFF @See below
[2018-01-25 06:13] LABS: HEMOGLOBIN 5.5 g/dl (12.0-16.0)
[2018-01-25 06:18] LABS: ALBUMIN 2.5 g/dl (3.3-4.9); ANION GAP 9 (8-16); BLOOD UREA NITROGEN 18 mg/dl (7-20); CALCIUM 8.1 mg/dl (8.4-10.2); CARBON DIOXIDE 24 mmol/L (21-31); CHLORIDE 105 mmol/L (97-110); CREATININE 0.77 mg/dl (0.44-1.00); GLUCOSE 193 mg/dl (70-220); MAGNESIUM 1.9 mg/dl (1.7-2.5); PHOSPHORUS 2.8 mg/dl (2.5-4.9); POTASSIUM 4.5 mmol/L (3.5-5.1); SODIUM 133 mmol/L (135-144)
[2018-01-25] MEDS: IMATINIB 400 MG TAB PO (08:47)
[2018-01-25] MEDS: MAGNESIUM OXIDE 400 MG TAB PO (08:47)
[2018-01-25] MEDS: SUCRALFATE (100 MG/ML) 10ML CUP PO ×2 (08:48→13:00)
[2018-01-25] MEDS: POTASSIUM CHLORIDE (SR) 20 MEQ TAB PO (08:48)
[2018-01-25] MEDS: FERROUS SULFATE (EC) 325 MG TAB PO (08:48)
[2018-01-25] MEDS: MEGESTROL 40 MG TAB PO ×2 (08:48→13:50)
[2018-01-25] MEDS: METOPROLOL (XL) 25 MG TAB PO (08:49)
[2018-01-25 09:44] LABS: WHITE BLOOD COUNT 4.6 10^3/ul (4.8-10.8)
[2018-01-25 09:44] LABS: ADD MAN DIFF? NO; BASOPHILS % 0.4 % (0.0-2.0); EOSINOPHILS % 0.7 % (0.0-7.0); HEMATOCRIT 28.4 % (37.0-47.0); HEMOGLOBIN 9.1 g/dl (12.0-16.0); LYMPHOCYTES # 0.8 10^3/ul (0.8-2.9); LYMPHOCYTES % 17.5 % (15.0-51.0); MEAN CORPUSCULAR HEMOGLOBIN 30.6 pg (29.0-33.0); MEAN CORPUSCULAR VOLUME 95.6 fl (82.0-101.0); MEAN PLATELET VOLUME 8.6 fl (7.4-10.4); MONOCYTE # 0.3 10^3/ul (0.3-0.9); MONOCYTES % 5.5 % (0.0-11.0); NEUTROPHIL # 3.5 10^3/ul (1.6-7.5); NEUTROPHILS % 75.7 % (39.0-77.0); PLATELET COUNT 359 10^3/UL (140-415); RED BLOOD COUNT 2.97 10^6/ul (4.20-5.40); RED CELL DISTRIBUTION WIDTH 19.3 % (11.5-14.5)
[2018-01-25] MEDS: HYDROCODONE/APAP (5/325) TAB PO (13:51)
== END 2018-01-25 16:10 | disposition home health service (06) | DRG 516 ==
LOC: E/R 11:22 → PP2 15:52
PROC: 0DJD8ZZ Inspection of Lower Intestinal Tract, Via Natural or Artificial Opening Endoscopic (ICD-10-PCS; 2017-12-26 14:30)
PROC: 30233N1 Transfusion of Nonautologous Red Blood Cells into Peripheral Vein, Percutaneous Approach (ICD-10-PCS; principal; 2017-12-26 15:00)
PROC: 06H03DZ Insertion of Intraluminal Device into Inferior Vena Cava, Percutaneous Approach (ICD-10-PCS; 2017-12-26 15:00)
PROC: 0DBU3ZX Excision of Omentum, Percutaneous Approach, Diagnostic (ICD-10-PCS; 2017-12-26 15:00)
PROC: 0W9G3ZZ Drainage of Peritoneal Cavity, Percutaneous Approach (ICD-10-PCS; 2017-12-26 15:00)
PROC: 02HV33Z Insertion of Infusion Device into Superior Vena Cava, Percutaneous Approach (ICD-10-PCS; 2017-12-26 15:00)
DX: C49.A9 Gastrointestinal stromal tumor of other sites (principal); C78.6 Secondary malignant neoplasm of retroperitoneum and peritoneum; K92.1 Melena; I82.4Z1 Acute embolism and thrombosis of unspecified deep veins of right distal lower extremity; R18.8 Other ascites; D68.59 Other primary thrombophilia; J98.11 Atelectasis; E44.0 Moderate protein-calorie malnutrition; D50.0 Iron deficiency anemia secondary to blood loss (chronic); D50.8 Other iron deficiency anemias; R10.13 Epigastric pain; Z87.11 Personal history of peptic ulcer disease; Z79.1 Long term (current) use of non-steroidal anti-inflammatories (NSAID); I95.9 Hypotension, unspecified; R11.2 Nausea with vomiting, unspecified; E11.9 Type 2 diabetes mellitus without complications; E78.5 Hyperlipidemia, unspecified; C80.1 Malignant (primary) neoplasm, unspecified; K76.0 Fatty (change of) liver, not elsewhere classified; R59.0 Localized enlarged lymph nodes; K44.9 Diaphragmatic hernia without obstruction or gangrene; M85.80 Other specified disorders of bone density and structure, unspecified site; R68.81 Early satiety; G25.0 Essential tremor; D63.8 Anemia in other chronic diseases classified elsewhere; R50.9 Fever, unspecified; R60.0 Localized edema
CPT/HCPCS: 36415; 36430; 36569; 37191; 71045; 71046; 71260; 74018; 74177; 74178; 76700; 76705; 76937; 77012; 78278; 80048; 80053; 80069; 81001; 82040; 82270; 82378; 82728; 82784; 82945; 82962; 83010; 83540; 83605; 83615; 83735; 84100; 84155; 84157; 84165; 84484; 84560; 85014; 85018; 85025; 85045; 85378; 85384; 85610; 85730; 86301; 86304; 86305; 86320; 86850; 86900; 86901; 86920; 87040; 87070; 87081; 87086; 87102; 87116; 88104; 88305; 88307; 88313; 88341; 88342; 89051; 93005; 93970; 96365; 96366; 96376; 97110; 97116; 97161; 97530; 99291-25